=== PATIENT | female | born 1935 | race Caucasian/White ===

== ENCOUNTER 2019-11-04 09:42 | Outpatient (CLI) | payer MEDICARE, SELFPAY ==
--- NOTE | 2019-11-10 01:38 | WPDPFTINT ---
PFT Interpretation PFT Interpretation: DOS: 11/04/2019 REQUESTING: Dr. Jose Vásquez REASON FOR TESTING: Dyspnea on exertion PULMONARY FUNCTION TESTS Results are reproducible. Spirometry: Normal FEV1, FVC and FEV1%. Decreased XXP76-68% at 56% predicted. The small airways increased by 30% with bronchodilator. Lung volumes: Total lung capacity normal 98%. Increased RV/TLC consistent with air trapping. Increased airway resistance. Diffusion: DLCO mildly decreased, 64%. Flow volume loop: Normal. IMPRESSION: Small airways pattern with good response to bronchodilator, air trapping, mild diffusion impairment. Miriam Sims MD
== END 2019-11-04 09:43 | disposition home or self-care (01) ==
PROVIDERS: PCP Family Medicine Adolescent Medicine; Visit Provider Family Medicine Adolescent Medicine
DX: R06.09 Other forms of dyspnea (principal)
CPT/HCPCS: 94060; 94726; 94729

== ENCOUNTER 2020-05-22 11:04 | Emergency (ER) | payer MEDICARE, SELFPAY ==
--- NOTE | ~2020-05-22 | XR_ITS ---
EXAMINATION: XR wrist RT min 3V DATE: 05/22/2020 12:02 INDICATION: Right wrist pain post fall TECHNIQUE: Posteroanterior, ulnar deviation, oblique, and lateral views of the right wrist were obtai shelly. COMPARISON: none FINDINGS: No fracture or traumatic malalignment. Chondrocalcinosis on the right wrist joint line. Polyarticular osteoarthritis, advanced at the first carpometacarpal joint, severe at the triscaphe and first inter phalangeal joints, moderate severity at the second and fifth metacarpophalangeal joints and mild at t he remaining metacarpophalangeal joints. Diffuse osteopenia. Soft tissue swelling about the radial as pect of the distal forearm. IMPRESSION: 1. No acute osseous abnormality. 2. Severe polyarticular osteoarthritis with chondrocalcinosis. Reviewed, dictated and finalized at location A.
--- NOTE | ~2020-05-22 | CT_ITS ---
EXAMINATION: CT cervical spine wo con DATE: 05/22/2020 12:21 INDICATION: Neck pain post fall TECHNIQUE: Computed tomography (CT) of the cervical spine was performed without intravenous contrast. Automated exposure control and iterative reconstruction technique were employed. The dose-length pro duct was 186.53 mGy-cm. COMPARISON: 04/24/2016 FINDINGS: Mild dextro scoliosis centered at the cervicothoracic junction. Unchanged 3 mm anterolisthesis C3 on C4 and C4 on C5. Vertebral body heights are normal. No acute fracture. Severe osteoarthritis at the a tlantoaxial articulation with calcified. Dense inflammatory pseudopannus. There are also erosions at the base of the dens. Severe disc height loss at C5-C6, C6-C7 and C7-T1. Moderate disc height loss at C2-C3 through C4-C5. Multilevel bilateral severe facet and uncovertebral osteoarthritis which result s in mild central canal and bilateral mild to moderate neural foraminal stenosis at multiple levels w hich is not significantly changed since the prior study. See prior report for level by level analysis . There is opacification of the bilateral sphenoid sinuses with increasing sclerosis of the manzano and increased density centrally consistent with chronic sinusitis. Mild atherosclerotic calcific a cyst at the bilateral carotid bulbs. Decrease in size of a now 10 mm left thyroid nodule. Cervical soft ti ssues are otherwise unremarkable. Visualized airway and apices of the lungs are clear. IMPRESSION: 1. Severe cervical spondylosis. No acute osseous abnormality. Reviewed, dictated and finalized at location A.
--- NOTE | ~2020-05-22 | XR_ITS ---
EXAMINATION: XR knee LT min 4V DATE: 05/22/2020 12:02 INDICATION: Left knee pain post fall TECHNIQUE: Anteroposterior, 2 oblique and crosstable lateral views of the left knee were obtained COMPARISON: 04/24/2016 FINDINGS: Left total knee arthroplasty with patellar resurfacing which remains well seated in near-anatomic ali gnment. No fracture or periprosthetic lucency to suggest loosening. Unchanged pattern of diffuse body osteopenia. No evident left knee joint effusion or layering lipohemarthrosis. Small amount of hetero topic ossification along the medial metaphyseal region of the proximal tibia. IMPRESSION: 1. Left total knee arthroplasty in near-anatomic alignment. No joint effusion or acute osseous abnorm ality Reviewed, dictated and finalized at location A. IMPRESSION: 1. Left total knee arthroplasty in near-anatomic alignment. No joint effusion o r acute osseous abnormality
[2020-05-22 11:15] VITALS: BP 128/66; PULSE 65; RESP 20; TEMP 36.4; O2SAT 98
--- NOTE | 2020-05-22 11:45 | ED.UPPEXIN ---
HPI - Extremity Injury (Upper) General Chief Complaint: Extremity Injury, Upper <Barbra Fuller PA-C - Last Filed: 05/22/20 13:48> Stated Complaint: Right hand injury - fall <ALCON Esteban Last Filed: 05/22/20 13:48> Time Seen by Provider: 05/22/20 11:18 <Barbra Fuller PA-C - Last Filed: 05/22/20 13:48> Source: patient <ALCON Esteban Last Filed: 05/22/20 13:48> Mode of arrival: ambulatory <ALCON Esteban Last Filed: 05/22/20 13:48> Limitations: no limitations <ALCON Esteban Last Filed: 05/22/20 13:48> History of Present Illness HPI narrative: This is an 85-year-old female that presents the emergency department for a fall today with right wrist pain. Reports she tripped and fell forward. Reports landing on her left knee and catching herself with her right wrist. Reports since she has had pain in the right wrist and left knee. Worse with movement and relieved with rest. She has not taken anything for pain. Denies hitting her head, loss of consciousness, decreased range of motion, or numbness. <Barbra Fuller PA-C - Last Filed: 05/22/20 13:48> Related Data Allergies/Adverse Reactions: Allergies Allergy/AdvReac Type Severity Reaction Status Date / Time etodolac Allergy Unknown RASH Verified 05/22/20 11:18 <Barbra Fuller PA-C - Last Filed: 05/22/20 13:48> Review of Systems Review of Systems: Narrative: CONSTITUTIONAL: Denies fever EYES: Denies visual changes GASTROINTESTINAL: Denies vomiting MUSCULOSKELETAL: Reports joint pain and myalgia. Denies back pain NEUROLOGIC: Denies numbness, or weakness. <ALCON Esteban Last Filed: 05/22/20 13:48> All systems reviewed & are unremarkable except as noted in HPI and below <ALCON Esteban Last Filed: 05/22/20 13:48> PMFSH Past Medical History Medical History: Medical History (Updated 05/22/20 @ 13:48 by Barbra Fuller PA-C) History of coronary artery disease History of gastroesophageal reflux (GERD) History of hyperlipidemia <Barbra Fuller PA-C - Last Filed: 05/22/20 13:48> Exam Narrative: Exam Narrative: GENERAL: Well-appearing, well-nourished, and in no acute distress. HEAD: Normocephalic, atraumatic. EYES: EOMI. NECK: Midline cervical spine tenderness CHEST: Clear to auscultation. No respiratory distress. No wheezes rales or rhonchi HEART: Regular rate and rhythm. No murmur heard. Normal peripheral pulses. EXTREMITIES: Normal range of motion. No edema or obvious deformity. Normal peripheral pulses. Normal sensation SKIN: Warm, dry, no rash. NEURO: No focal deficits. Alert and oriented x3. PSYCH: Normal mood and affect <Barbra Fuller PA-C - Last Filed: 05/22/20 13:48> Course Vital Signs Vital signs: Vital Signs Temperature 36.4 C L 05/22/20 11:15 Pulse Rate 65 05/22/20 11:15 Respiratory Rate 05/22/20 11:15 Blood Pressure 128/66 05/22/20 11:15 Pulse Oximetry 98 05/22/20 11:15 Temperature 36.4 C L 05/22/20 11:15 Pulse Rate 65 05/22/20 11:15 Respiratory Rate 05/22/20 11:15 Blood Pressure 128/66 05/22/20 11:15 Pulse Oximetry 98 05/22/20 11:15 <Barbra Fuller PA-C - Last Filed: 05/22/20 13:48> Vital Signs Temperature 36.4 C L 05/22/20 11:15 Pulse Rate 65 05/22/20 11:15 Respiratory Rate 20 05/22/20 11:15 Blood Pressure 128/66 05/22/20 11:15 Pulse Oximetry 98 05/22/20 11:15 Temperature 36.4 C L 05/22/20 11:15 Pulse Rate 65 05/22/20 11:15 Respiratory Rate 20 05/22/20 11:15 Blood Pressure 128/66 05/22/20 11:15 Pulse Oximetry 98 05/22/20 11:15 <Brigitte hCun MD - Last Filed: 05/22/20 13:58> MDM - Extremity Injury (Upper) MDM Narrative Medical decision making narrative: Patient presents to the emergency department after a fall today with left knee, right wrist, and neck pain. Patient denies hitting her head or loss of consciousne
[2020-05-22] MEDS: ACETAMINOPHEN 500 MG TABLET 1000 MG PO (12:18)
[2020-05-22 13:57] VITALS: BP 132/70; PULSE 70; RESP 20; O2SAT 99
== END 2020-05-22 14:06 | disposition home or self-care (01) ==
PROVIDERS: Emergency Provider Emergency Medicine; PCP Family Medicine Adolescent Medicine
DX: S63.501A Unspecified sprain of right wrist, initial encounter (principal); M54.2 Cervicalgia; M25.562 Pain in left knee; I25.10 Atherosclerotic heart disease of native coronary artery without angina pectoris; K21.9 Gastro-esophageal reflux disease without esophagitis; E78.5 Hyperlipidemia, unspecified; M47.812 Spondylosis without myelopathy or radiculopathy, cervical region; M19.031 Primary osteoarthritis, right wrist; W01.0XXA Fall on same level from slipping, tripping and stumbling without subsequent striking against object, initial encounter
CPT/HCPCS: 72125; 73110; 73564; 99284; A4565; A9270

== ENCOUNTER 2021-06-08 10:14 | Emergency (ER) | payer MEDICARE, SELFPAY ==
--- NOTE | ~2021-06-08 | XR_ITS ---
EXAMINATION: XR hip RT 2V w AP pelvis DATE: 06/08/2021 11:31 INDICATION: Right hip pain post fall TECHNIQUE: Anteroposterior view of the pelvis and anteroposterior and frog-leg lateral views of the r ight hip were obtained. COMPARISON: None. FINDINGS: Alignment is normal. No fracture. Mild right and moderate left hip osteoarthritis with chondrocalcino sis at both hips. Severe lower lumbar spondylosis. IMPRESSION: 1. Chondrocalcinosis and osteoarthritis of both hips. No acute osseous abnormality. 2. Severe lower lumbar spondylosis. Reviewed, dictated and finalized at location A. IMPRESSION: 1. Chondrocalcinosis and osteoarthritis of both hips. No acute osseous abnormal ity. 2. Severe lower lumbar spondylosis.
--- NOTE | ~2021-06-08 | XR_ITS ---
XR chest 1V portable 06/08/2021 11:36 Indication: Status post fall. Chest pain. Procedure: AP view of the chest Comparison: 09/23/2007 Findings: Left basilar atelectasis. Heart size normal. No focal pneumonia, edema, pleural effusion or pneumothorax. No acute osseous abnormality. Impression: 1: Left basilar atelectasis. Reviewed, dictated and finalized at location A. Impression: 1: Left basilar atelectasis.
--- NOTE | ~2021-06-08 | XR_ITS ---
EXAMINATION: XR knee RT 3V EXAM DATE: 06/08/2021 11:30 INDICATION: Fall, right knee pain. TECHNIQUE: Three projections of the right knee. There is no prior study for comparison. FINDINGS: Total right knee arthroplasty hardware. There is acute closed posttraumatic transverse frac ture with some comminution above the femoral component, the right radial distal metaphysis. There is posterior angulation and displacement. Soft tissue swelling. Tibia and fibula are unremarkable. IMPRESSION: Acute right distal femoral metaphyseal fracture above femoral component. Posterior angula tion, displacement. Reviewed, dictated and finalized at location B. IMPRESSION: Acute right distal femoral metaphyseal fracture above femoral compo nent. Posterior angulation, displacement.
[2021-06-08 10:20] VITALS: BP 143/82; PULSE 69; RESP 16; TEMP 36.2; O2SAT 96
--- NOTE | 2021-06-08 11:19 | ECG_ITS ---
Measurements Intervals [place] Rate: 64 P: 75 NH: 127 QRS: 32 QRSD: 85 T: 46 QT: 375 QTc: 388 Interpretive Statements SINUS RHYTHM BASELINE ARTIFACT- I, II, AVR, AVL, AVF, V4-V5 NORMAL ECG Electronically Signed On 06-08-2021 13:02:44 CDT by Rashard Cason D.O.
[2021-06-08] MEDS: MORPHINE SULFATE (*CRX) 4 MG/ML INJ IV PUSH (11:51)
[2021-06-08] MEDS: ONDANSETRON INJ 4 MG/2 ML VIAL IV PUSH (11:51)
--- NOTE | 2021-06-08 12:26 | ED.LOWEXIN ---
HPI - Extremity Injury (Lower) General Chief Complaint: Extremity Injury, Lower Stated Complaint: FALL R HIP AND LEG PAIN Time Seen by Provider: 06/08/21 10:15 Source: patient, EMS and RN notes reviewed Mode of arrival: EMS Limitations: no limitations History of Present Illness HPI Narrative: Patient is 86 years old white female came from home after a fall. Patient lives alone, uses a cane to assist walking, right knee gave out and fell to the floor, denies head injury, or loss of consciousness complaining of right knee pain. Patient had the first dose of Covid vaccination weeks ago. Patient denies taking any blood thinner, does not smoke or drink. Related Data Home Medications Medication Instructions Recorded Confirmed Unable to Obtain Home Medications 06/08/21 06/08/21 Allergies Allergy/AdvReac Type Severity Reaction Status Date / Time etodolac Allergy Unknown RASH Verified 06/08/21 12:43 Review of Systems Review of Systems: CONSTITUTIONAL: Denies fever, chills, or sweats. EYES: Denies visual changes, redness, or discharge. ENT: Denies rhinorrhea, congestion, sore throat, or otalgia. CARDIOVASCULAR: Denies chest pain, palpitations, or edema. RESPIRATORY: Denies cough or dyspnea. GASTROINTESTINAL: Denies abdominal pain, nausea, vomiting, or diarrhea. GENITOURINARY: Denies dysuria or hematuria. SKIN: Denies rash or itching. MUSCULOSKELETAL: Denies back pain, joint pain, or myalgia. NEUROLOGIC: Denies headache, numbness, or weakness. PSYCHIATRIC: Denies anxiety or depression. PMFSH Past Medical History Medical History Arthritis of wrist, right, degenerative Constipation Fracture of radius, distal, right, closed History of coronary artery disease History of gastroesophageal reflux (GERD) History of hyperlipidemia Shortness of breath Urinary frequency Vision changes Wears glasses Social History Social History Smoking status: Never smoker Alcohol intake: never Exam Narrative: General appearance: Well-developed, well-nourished, looks in pain Skin: Normal color Head: Normocephalic, nontraumatic Eyes: Clear conjunctiva ENT: Oropharynx normal, ears normal, nose normal Neck: Supple, nontender Chest and respiratory: Airway patent, no respiratory distress, no accessory muscle use Heart: Regular rate/rhythm Abdomen: Soft, nontender, no organomegaly, quiet bowel sounds Vascular: Normal peripheral pulses, normal capillary refill. Musculoskeletal: Deformity and diffuse excruciating tenderness right knee. Neurologic: Alert and oriented ?3, CAS[place] CREW is normal as tested, no gross motor deficit Course Course Emergency Course: Stable Consultations Consultation #1: Dr. Meyer patient to [facility] Date: 06/08/21 Time: 12:36 Consultation #2: Dr. Gomez, [facility], orthopedic. Date: 06/08/21 Time: 15:15 Consultation #3: Dr. Munoz, ED at [facility] who accepted patient transfer Date: 06/08/21 Time: 15:15 Vital Signs Vital signs: Vital Signs Temperature 36.2 C L 06/08/21 10:20 Pulse Rate 69 06/08/21 10:20 Respiratory Rate 16 06/08/21 10:20 Blood Pressure 143/82 H 06/08/21 10:20 Pulse Oximetry 96 06/08/21 10:20 Temperature 36.2 C L 06/08/21 10:20 Pulse Rate 96 06/08/21 14:45 Respiratory Rate 16 06/08/21 14:45 Blood Pressure 137/78 06/08/21 14:45 Pulse Oximetry 98 06/08/21 14:45 MDM - Extremity Injury (Lower) MDM Narrative Medical decision making narrative: Distal femoral fracture is my concern. X-ray, IV access, IV morphine, IV Zofran, labs ordered. Further plan to
[2021-06-08 12:32] LABS: Alanine Aminotransferase 19 U/L (4-35); Albumin Level 4.1 g/dL (3.5-5.1); Alkaline Phosphatase 62 U/L (38-126); Anion Gap 11 mmol/L (8-16); Aspartate Amino Transferase 28 U/L (14-36); Bilirubin,Total 0.5 mg/dL (0.2-1.3); Blood Urea Nitrogen 8 mg/dL (7-17); Calcium 9.7 mg/dL (8.4-10.2); Carbon Dioxide 22 mmol/L (22-30); Chloride 105 mmol/L (98-107); Estimated CRCL calculation 54 ml/min; Estimated Glomerular Filt Rate > 60; Glucose 145 mg/dL (65-110); Potassium 3.9 mmol/L (3.4-5.0); Sodium 138 mmol/L (137-145)
[2021-06-08 12:42] VITALS: BP 115/77; PULSE 88; RESP 16; O2SAT 100
[2021-06-08 14:45] VITALS: BP 137/78; PULSE 96; RESP 16; O2SAT 98
--- NOTE | 2021-06-08 14:48 | PC.NURSE ---
Hi, Dalton, updated.
[2021-06-08 15:02] LABS: Basophils Absolute Auto 0.1 K/mm3 (0.0-0.1); Basophils Percent Auto 0.5 % (0.2-1.2); Eosinophils Percent Auto 0.1 % (0-4.4); Hematocrit 42.4 % (37.0-47.0); Hemoglobin 13.5 g/dL (12.0-15.0); Immature Granulocyte Absolute 0.04 K/mm3 (0.00-0.031); Immature Granulocyte Percent A 0.4 % (0-0.5); Lymphocytes Absolute Auto 0.56 K/mm3 (0.9-3.2); Lymphocytes Percent Auto 5.8 % (18.3-44.2); Mean Corpuscular HGB Conc 31.8 g/dl (32-36); Mean Corpuscular Hemoglobin 28.6 pg (26-34); Mean Corpuscular Volume 89.8 fl (80-100); Mean Platelet Volume 10.1 fl (7.4-10.4); Monocytes Absolute Auto 0.5 K/mm3 (0.1-0.6); Monocytes Percent Auto 5.6 % (2.6-8.5); Neutrophils Absolute Auto 8.4 K/mm3 (1.3-6.7); Neutrophils Percent Auto 87.6 % (45.5-73.1); Platelet Count Result 265 k/mm3 (150-375); Red Blood Count 4.72 M/mm3 (4.2-5.4); Red Cell Distribution Width 15.1 % (11.5-14.5); White Blood Count 9.6 K/mm3 (4.5-10.0)
[2021-06-08 16:18] LABS: INR 0.9; Prothrombin Time 12.4 Seconds (11.1-14.7)
[2021-06-08 16:27] LABS: Partial Thromboplastin Time 25.6 SECONDS (22.3-36.8)
[2021-06-08 17:33] LABS: Add Urine Microscopic? YES; Appearance Urine Clear (Clear); Bilirubin Urine Negative (Negative); Blood Urine Negative (Negative); Color Urine Yellow (Yellow); Glucose Urine UA Negative (Negative); Ketones Urine Negative (Negative); Leukocyte Esterase Ur Negative LEU/UL (Negative); Nitrate Urine Negative (Negative); Protein Urine 1+ mg/dL (Negative); Specific Grav Ur 1.012 (1.001-1.035); Urobilinogen Urine Negative mg/dL (<2.0)
== END 2021-06-08 15:55 | disposition short-term general hospital (02) ==
PROVIDERS: Emergency Provider Emergency Medicine; PCP Family Medicine Adolescent Medicine
DX: S79.191A Other physeal fracture of lower end of right femur, initial encounter for closed fracture (principal); M19.031 Primary osteoarthritis, right wrist; I25.10 Atherosclerotic heart disease of native coronary artery without angina pectoris; K21.9 Gastro-esophageal reflux disease without esophagitis; E78.5 Hyperlipidemia, unspecified; M11.252 Other chondrocalcinosis, left hip; M11.251 Other chondrocalcinosis, right hip; M16.0 Bilateral primary osteoarthritis of hip; M47.816 Spondylosis without myelopathy or radiculopathy, lumbar region; W18.39XA Other fall on same level, initial encounter
CPT/HCPCS: 36415; 51701; 71045; 73502; 73562; 80053; 81001; 85025; 85610; 85730; 93005; 96374; 96375; 99285; J2270; J2405

== ENCOUNTER 2021-07-23 07:07 | Emergency (ER) | payer MEDICARE, SELFPAY ==
--- NOTE | ~2021-07-23 | XR_ITS ---
EXAMINATION: XR chest 2V EXAM DATE: 07/23/2021 07:44 INDICATION: Ground level fall hx of dementia. TECHNIQUE: Frontal and lateral projections of the chest obtained and reviewed. There is no prior belkis dy for comparison. FINDINGS: The lungs are clear. There are no pleural effusions. The cardiomediastinal silhouette is within normal limits. There is no pneumothorax suspected. There is aortic arteriosclerosis. There a re mild bony degenerative changes. IMPRESSION: No acute cardiopulmonary findings. Reviewed, dictated and finalized at location A.
--- NOTE | ~2021-07-23 | XR_ITS ---
EXAMINATION: XR lumbar spine 2-3V EXAM DATE: 07/23/2021 07:44 INDICATION: ground level fall, right side low back pain. h/o dementia . TECHNIQUE: Lumber spine frontal, lateral projections for interpretation. Comparison is made to prior examination from 04/24/2016. FINDINGS: The distal half of the sacrum is obscured on the lateral from overlying artifacts. There is severe disc disease L3-S1. There is moderate lower lumbar facet arthropathy. There is 4 mm anterolis thesis L3 on L4, 6 mm anterolisthesis L4 on L5 without definite spondylolysis. Evaluation of the sacr um and transverse processes is somewhat limited due to overlying bowel gas. There are no acute fractu res identified. Moderate abdominal aortic arteriosclerosis. IMPRESSION: 1. Limited exam, no acute fracture identified. Reviewed, dictated and finalized at location A.
--- NOTE | ~2021-07-23 | CT_ITS ---
EXAMINATION: CT brain wo con, CT cervical spine wo con EXAM DATE: 07/23/2021 07:57 (accession [id number]), 07/23/2021 07:58 (accession [id number]) INDICATION: Occipital head injury. Ground level fall. TECHNIQUE: Spiral CT of the head was performed without contrast. Axial, coronal and sagittal images were reviewed. Spiral CT of the cervical spine was performed without contrast. Axial images were rev iewed. Coronal and sagittal reformatted images were also reviewed. The dose-length product (DLP) fo r this examination was 605.33 (accession [id number]), 127.85 (accession [id number]) mGy-cm. The exposure was tailored according to patient size, and iterative reconstruction (ASIR) was used as additional dose reduction technique. Comparison is made to prior examination from 04/17/2005. FINDINGS: HEAD CT: There is right vertex scalp contusion, hematoma. No underlying calvarial fracture. There is no acute intraparenchymal hemorrhage. No evidence of intraparenchymal brain mass lesion. No evidenc e of acute infarction. There is mild to moderate periventricular and subcortical hypodensity, nonspec ific but probably related to small vessel ischemic disease. There is moderate prominence of the sul ci and ventricles related to cerebral atrophy. There is no mass effect or midline shift. There is no obstructive hydrocephalus suspected. There are no extra-axial collections. Patient has had bilat eral ocular lens surgery. Soft tissue is unremarkable. The visualized sinuses and mastoid air cells are well aerated. CERVICAL CT: Large amount of pannus formation surrounding the odontoid process. There is no evidence of acute cervical fracture. The odontoid process is intact. Pre-dens space is normal. Prevertebral soft tissue is normal. There are no soft tissue abnormalities identified. There is no disc space w idening or traumatic vertebral body subluxation suspected. There are multiple degenerative subluxati ons. There is severe cervical disc disease and arthropathy. A detailed level by level evaluation of spondylosis can be added as addendum if requested. IMPRESSION: 1. No acute intracranial findings or cervical fracture. 2. Right posterior scalp contusion, hematoma. 3. Age-related intracranial findings. 4. Advanced cervical spondylosis. Reviewed, dictated and finalized at location A. IMPRESSION: 1. No acute intracranial findings or cervical fracture. 2. Right posterior scalp contusion, hematoma. 3. Age-related intracranial findings. 4. Advanced cervical spondylosis.
--- NOTE | 2021-07-23 07:24 | ECG_ITS ---
Measurements Intervals [place] Rate: 64 P: 72 TN: 138 QRS: 40 QRSD: 88 T: 35 QT: 418 QTc: 434 Interpretive Statements SINUS RHYTHM BASELINE ARTIFACT- I, III, AVR, AVL, AVF, V4-V6 NORMAL ECG Electronically Signed On 07-23-2021 15:48:19 CDT by Rashard Cason D.O.
[2021-07-23 07:27] VITALS: BP 112/57; PULSE 61; RESP 18; TEMP 36.4; O2SAT 97
--- NOTE | 2021-07-23 07:56 | ED.FALL ---
HPI - Fall General Chief Complaint: Fall Stated Complaint: FALL Time Seen by Provider: 07/23/21 07:19 Source: patient, EMS, RN notes reviewed and old records reviewed History of Present Illness HPI Narrative: Patient presents after an unwitnessed fall. Patient is bedbound due to prior lower extremity fractures. This morning she was found on the ground with bleeding from a head injury she was referred to the ER for evaluation. Patient's baseline mental status alert and oriented x2. snf reports they have had issues with patient attempting to get out of bed her self. Have not noted any recent fevers changes in appetite cough or congestion. Nursing facility did not appreciate any change in her baseline mental status. Patient is reporting low back pain Related Data Home Medications Medication Instructions Recorded Confirmed Unable to Obtain Home Medications 06/08/21 06/08/21 Allergies Allergy/AdvReac Type Severity Reaction Status Date / Time etodolac Allergy Unknown RASH Verified 07/23/21 07:38 Review of Systems Review of Systems: CONSTITUTIONAL: Denies fever, chills, or sweats. EYES: Denies visual changes, redness, or discharge. ENT: Denies rhinorrhea, congestion, sore throat, or otalgia. CARDIOVASCULAR: Denies chest pain, palpitations, or edema. RESPIRATORY: Denies cough or dyspnea. GASTROINTESTINAL: Denies abdominal pain, nausea, vomiting, or diarrhea. GENITOURINARY: Denies dysuria or hematuria. SKIN: Denies rash or itching. MUSCULOSKELETAL: Patient ports low back pain NEUROLOGIC: Patient reports headache PSYCHIATRIC: Denies anxiety or depression. All systems reviewed & are unremarkable except as noted in HPI and below PMFSH Past Medical History Medical History Arthritis of wrist, right, degenerative Constipation Fracture of radius, distal, right, closed History of coronary artery disease History of gastroesophageal reflux (GERD) History of hyperlipidemia Shortness of breath Urinary frequency Vision changes Wears glasses Social History Social History Smoking status: Never smoker Alcohol intake: never Exam Narrative: GENERAL: Well-appearing, well-nourished, and in no acute distress. HEAD: Normocephalic, superficial abrasion on the right occiput without active bleeding there is an underlying hematoma. EYES: PERRLA and EOMI. ENT: Nares clear, no rhinorrhea or epistaxis. Mucous membranes moist. NECK: Supple. No masses. No JVD CHEST: Clear to auscultation. No respiratory distress. No wheezes rales or rhonchi HEART: Regular rate and rhythm. No murmur heard. Normal peripheral pulses. ABDOMEN: Soft, nontender, nondistended, normal active bowel sounds. EXTREMITIES: Normal range of motion. No edema. BaCK: No focal areas of midline pain no step-offs no deformities no ecchymoses SKIN: Warm, dry, no rash. NEURO: No focal deficits. Alert and oriented x2. PSYCH: Normal mood and affect. Course Reevaluation(s) Reevaluation #1: Patient is resting comfortably wound has been irrigated imaging reviewed with patient. Patient is appropriate to return to her nursing facility. Patient is comfortable returning to her nursing facility Date: 07/23/21 Time: 09:06 Vital Signs Vital signs: Vital Signs Temperature 36.4 C L 07/23/21 07:27 Pulse Rate 61 07/23/21 07:27 Respiratory Rate 18 07/23/21 07:27 Blood Pressure 112/57 L 07/23/21 07:27 Pulse Oximetry 97 07/23/21 07:27 Temperature 36.4 C L 07/23/21 07:27 Pulse Rate 60 07/23/21 09:21 Respiratory Rate 16 07/23/21 09:21 Blood Pressure 113/51 L 07/23/21 09:21 Pulse Oximetry 99 07/23/21 09:21 MDM - Fall MDM Narrative Medical decision making narrative: H&P as above, vss, pt looks clinically well, exam superficial abrasion to the right occiput no lacerations or injuries amenable to suturing, labs similar to prior, img wi
[2021-07-23] MEDS: SODIUM CHLORIDE 0.9% IV 500 ML 999 ML IV CONT (07:59)
[2021-07-23 08:16] LABS: Basophils Absolute Auto 0.1 K/mm3 (0.0-0.1); Eosinophils Absolute Auto 0.1 K/mm3 (0-0.3); Eosinophils Percent Auto 2.1 % (0-4.4); Hematocrit 38.1 % (37.0-47.0); Hemoglobin 12.6 g/dL (12.0-15.0); Immature Granulocyte Absolute 0.03 K/mm3 (0.00-0.031); Immature Granulocyte Percent A 0.6 % (0-0.5); Lymphocytes Absolute Auto 0.51 K/mm3 (0.9-3.2); Lymphocytes Percent Auto 9.8 % (18.3-44.2); Mean Corpuscular HGB Conc 33.1 g/dl (32-36); Mean Corpuscular Hemoglobin 31.2 pg (26-34); Mean Corpuscular Volume 94.3 fl (80-100); Mean Platelet Volume 9.6 fl (7.4-10.4); Monocytes Absolute Auto 0.6 K/mm3 (0.1-0.6); Monocytes Percent Auto 10.7 % (2.6-8.5); Neutrophils Percent Auto 75.8 % (45.5-73.1); Platelet Count Result 302 k/mm3 (150-375); Red Blood Count 4.04 M/mm3 (4.2-5.4); Red Cell Distribution Width 14.9 % (11.5-14.5); White Blood Count 5.2 K/mm3 (4.5-10.0)
[2021-07-23 08:27] LABS: Prothrombin Time 13.5 Seconds (11.1-14.7)
[2021-07-23 08:28] LABS: Partial Thromboplastin Time 27.1 SECONDS (22.3-36.8)
[2021-07-23 08:35] LABS: Alanine Aminotransferase 19 U/L (4-35); Albumin Level 3.1 g/dL (3.5-5.1); Alkaline Phosphatase 75 U/L (38-126); Anion Gap 6 mmol/L (8-16); Aspartate Amino Transferase 28 U/L (14-36); Bilirubin,Total 0.6 mg/dL (0.2-1.3); Blood Urea Nitrogen 5 mg/dL (7-17); Calcium 9.2 mg/dL (8.4-10.2); Carbon Dioxide 26 mmol/L (22-30); Chloride 102 mmol/L (98-107); Estimated CRCL calculation 80 ml/min; Estimated Glomerular Filt Rate > 60; Glucose 120 mg/dL (65-110); Potassium 3.8 mmol/L (3.4-5.0); Sodium 134 mmol/L (137-145)
[2021-07-23 08:38] LABS: Add Urine Microscopic? NO; Appearance Urine Clear (Clear); Bilirubin Urine Negative (Negative); Blood Urine Negative (Negative); Color Urine Yellow (Yellow); Glucose Urine UA Negative (Negative); Ketones Urine Negative (Negative); Leukocyte Esterase Ur Negative LEU/UL (Negative); Nitrate Urine Negative (Negative); Protein Urine Negative (Negative); Specific Grav Ur 1.006 (1.001-1.035); Urobilinogen Urine Negative mg/dL (<2.0)
[2021-07-23 09:21] VITALS: BP 113/51; PULSE 60; RESP 16; O2SAT 99
== END 2021-07-23 10:51 ==
PROVIDERS: Emergency Provider Emergency Medicine; PCP Family Medicine Adolescent Medicine
DX: S00.01XA Abrasion of scalp, initial encounter (principal); S00.03XA Contusion of scalp, initial encounter; I25.10 Atherosclerotic heart disease of native coronary artery without angina pectoris; E78.5 Hyperlipidemia, unspecified; K21.9 Gastro-esophageal reflux disease without esophagitis; M47.812 Spondylosis without myelopathy or radiculopathy, cervical region; W19.XXXA Unspecified fall, initial encounter
CPT/HCPCS: 36415; 51701; 70450; 71046; 72100; 72125; 80053; 81003; 85025; 85610; 85730; 93005; 96361; 96365; 99284; J0131; J7040

== ENCOUNTER 2023-01-20 02:41 | Emergency (ER) | payer MEDICARE, MEDICAID, SELFPAY ==
--- NOTE | ~2023-01-20 | CT_ITS ---
EXAMINATION: CT cervical spine wo con DATE: 01/20/2023 04:35 INDICATION: Neck injury. Fall. TECHNIQUE: Computed tomography (CT) of the cervical spine was performed without intravenous contrast. Automated exposure control and iterative reconstruction technique were employed. The dose-length pro duct was 399.29 mGy-cm. COMPARISON: Cervical spine CT 07/23/2021 FINDINGS: There is 2 mm anterolisthesis of C3 on C4 and C4 on C5 and C7 on T1. Vertebral body heights are normal. There is severe osteoarthritis of anterior atlantoaxial joint with peridens inflammatory pseudopannus with mild central canal stenosis. There is moderately decreased disc height at C2-C3, C 3-C4, and C4-C5 and severely decreased disc height from C5-C6 through C7-T1 with endplate remodeling. The following disc levels are specifically discussed: C2-C3: There is mild bilateral uncovertebral joint osteoarthritis. There is severe bilateral facet lazarus int osteoarthritis. There is mild bilateral neural foraminal stenosis. There is mild central canal st enosis. C3-C4: There is severe bilateral uncovertebral joint osteoarthritis. There is severe bilateral facet joint osteoarthritis. There is moderate bilateral neural foraminal stenosis. There is mild central ca nal stenosis. C4-C5: There is severe bilateral uncovertebral joint osteoarthritis. There is severe bilateral facet joint osteoarthritis. There is moderate right and mild left neural foraminal stenosis. There is mild central canal stenosis. C5-C6: There is severe bilateral uncovertebral joint osteoarthritis. There is severe bilateral facet joint osteoarthritis. There is mild right and moderate left neural foraminal stenosis. There is mild central canal stenosis. C6-C7: There is severe bilateral uncovertebral joint osteoarthritis. There is severe bilateral facet joint osteoarthritis. There is mild bilateral neural foraminal stenosis. There is mild central canal stenosis. C7-T1: There is severe bilateral uncovertebral joint osteoarthritis. There is severe bilateral facet joint osteoarthritis. There is moderate bilateral neural foraminal stenosis. There is mild central ca nal stenosis. IMPRESSION: 1. No fracture. 2. Severe cervical spondylosis. Reviewed, dictated and finalized at location E.
--- NOTE | ~2023-01-20 | CT_ITS ---
EXAMINATION: CT brain wo con DATE: 01/20/2023 04:34 INDICATION: Head injury. Dementia. TECHNIQUE: Computed tomography (CT) of the head was performed without intravenous contrast. The mA wa s adjusted according to patient size. Iterative reconstruction technique was employed. The dose-lengt h product was 681.00 mGy-cm. COMPARISON: Head CT 07/23/2021 FINDINGS: There is diffuse brain volume loss. There are scattered areas of low attenuation in the cer ebral white matter and samantha. There is no intracranial hemorrhage, acute infarction, or abnormal intra cranial mass lesion. The ventricles are normal in size. There are likely changes of ocular lens repla cement surgeries. The mastoid air cells are normal. There is near complete opacification of sphenoid sinus with thickening and sclerosis of the sinus manzano, consistent with chronic sinusitis. There is m ild mucosal thickening in the other paranasal sinuses. There is left posterior superior scalp soft ti ssue swelling. IMPRESSION: 1. Moderate nonspecific cerebral white matter disease and pontine disease with interval worsening in the samantha, which likely represents chronic small vessel ischemic disease. 2. Chronic sinusitis. Reviewed, dictated and finalized at location E. IMPRESSION: 1. Moderate nonspecific cerebral white matter disease and pontine disease with interval worsening in the samantha, which likely represents chronic small vessel is chemic disease. 2. Chronic sinusitis.
--- NOTE | ~2023-01-20 | XR_ITS ---
EXAMINATION: XR foot RT min 3V DATE: 01/20/2023 04:39 INDICATION: Bruising and pain of the first toe TECHNIQUE: Dorsoplantar, lateral, and 2 oblique views of the left foot were obtained. COMPARISON: 02/15/2016 FINDINGS: The bones are osteopenic which limits the sensitivity for fracture. There is a questionable oblique intra-articular fracture at the medial base of the first proximal phalanx. There is moderate osteoarthritis of multiple interphalangeal joints as well as in the midfoot. Calcified atheroscleros is is noted. IMPRESSION: 1. Possible nondisplaced intra-articular fracture at the medial base of the first proximal phalanx. Reviewed, dictated and finalized at location A. IMPRESSION: 1. Possible nondisplaced intra-articular fracture at the medial base of the fir st proximal phalanx.
[2023-01-20 02:55] VITALS: BP 155/118; PULSE 77; RESP 15; O2SAT 97
[2023-01-20 02:56] VITALS: PULSE 73; RESP 16; O2SAT 97
[2023-01-20 03:00] VITALS: PULSE 69; RESP 13; O2SAT 92
[2023-01-20 03:31] VITALS: BP 129/50; PULSE 72; RESP 12; O2SAT 99
[2023-01-20 03:46] VITALS: BP 139/52; PULSE 68; RESP 13; O2SAT 96
[2023-01-20] MEDS: ACETAMINOPHEN 500 MG TABLET 1000 MG PO (04:43)
--- NOTE | 2023-01-20 06:22 | PC.NURSE ---
Isac rodriguez called for an update on Pt. Nurse updated on patient and pending results. Informed nurse that unless ED MD feels pt is in need of admission that pt will be discharged back to the facility.
--- NOTE | 2023-01-20 07:00 | ED.FALL ---
HPI - Fall General Chief Complaint: Fall Stated Complaint: glf Time Seen by Provider: 01/20/23 04:01 History of Present Illness HPI Narrative: This is an 87F with history of dementia brought in by EMS after an unwitnessed fall at her [facility]. The patient states she was attempting to walk to her bathroom when she tripped and fell. She complains of mild dull pain to the back of her head and mild to moderate pain at the medial aspect of the right foot. She denies chest pain, palpitations, lightheadness, focal weakness, difficulty breathing or loss of consciousness. Related Data Home Medications Medication Instructions Recorded Confirmed Unable to Obtain Home Medications 06/08/21 12/14/22 Allergies Allergy/AdvReac Type Severity Reaction Status Date / Time etodolac Allergy Unknown RASH Verified 07/23/21 07:38 Review of Systems Review of Systems: CONSTITUTIONAL: Denies fever, chills, or sweats. CARDIOVASCULAR: Denies chest pain, palpitations, or edema. RESPIRATORY: Denies cough or dyspnea. GASTROINTESTINAL: Denies abdominal pain, nausea vomiting or diarrhea. GENITOURINARY: Denies dysuria or hematuria. SKIN: Denies rash or itching. MUSCULOSKELETAL: Right foot pain Denies back pain, or myalgia. NEUROLOGIC: Mild headache Denies numbness, dizziness, or weakness. PSYCHIATRIC: Denies depression or anxiety PMFSH Past Medical History Medical History Arthritis of wrist, right, degenerative Constipation Fracture of radius, distal, right, closed History of coronary artery disease History of gastroesophageal reflux (GERD) History of hyperlipidemia Shortness of breath Urinary frequency Vision changes Wears glasses Social History Social History Smoking status: Never smoker Alcohol intake: never Exam Narrative: GENERAL: Well-developed, well-nourished, in no acute distress HEAD: Normocephalic, atraumatic. EYES: PERRLA and EOMI. ENT: Nares clear, no rhinorrhea or epistaxis. Mucous membranes moist. Oropharynx without tonsillar hypertrophy exudate or other lesions. Bilateral TMs appear normal NECK: Supple. No adenopathy or masses. No carotid bruits or JVD. No midline spine tenderness to palpation. No step-off or crepitus CHEST: Clear to auscultation. No respiratory distress. No wheezes rales or rhonchi HEART: Regular rate and rhythm. No murmur heard. Normal peripheral pulses. ABDOMEN: Soft, nontender, nondistended, normal active bowel sounds. No CVA tenderness BACK: No midline spine tenderness to palpation. No step-off or crepitus EXTREMITIES: Normal range of motion. Mild deformation of the bilateral distal fingers consistent with arthritis. Mild ecchymosis at the dorsal lateral aspect of the right great toe with mild tenderness to palpation. No edema. SKIN: Warm, dry, no rash. NEURO: No focal deficits. Alert and oriented x3. Strength 5/5 in all extremities, sensation intact bilaterally, no noted ataxia PSYCH: Normal mood and affect. Course Course Emergency Course: 06:30 - CT reads delayed for overnight stat rad interpretation. CT head negative for intracranial hemorrhage or fracture. CT cervical spine negative for fracture. On my review of the patient's foot x-ray is not concerning for fracture. Nursing staff contacted the patient's [facility]. She is wheelchair-bound aside from ambulating to the bathroom. Will discharge. Vital Signs Vital signs: Vital Signs Pulse Rate 77 01/20/23 02:55 Respiratory Rate 15 01/20/23 02:55 Blood Pressure 155/118 H 01/20/23 02:55 Pulse Oximetry 97 01/20/23 02:55 Pulse Rate 80 01/20/23 07:40 Respiratory Rate 18 01/20/23 07:40 Blood Pressure 125/60 01/20/23 07:40 Pulse Oximetry 98 01/20/23 07:40 MDM - Fall MDM Narrative Medical decision making narrative: Plan: Imaging, reassess Differential Diagnosis Differential michael
[2023-01-20 07:40] VITALS: BP 125/60; PULSE 80; RESP 18; O2SAT 98
== END 2023-01-20 08:00 ==
PROVIDERS: Emergency Provider Preventive Medicine Aerospace Medicine; PCP Family Medicine Adolescent Medicine
DX: S00.03XA Contusion of scalp, initial encounter (principal); S90.31XA Contusion of right foot, initial encounter; F03.90 Unspecified dementia, unspecified severity, without behavioral disturbance, psychotic disturbance, mood disturbance, and anxiety; I25.10 Atherosclerotic heart disease of native coronary artery without angina pectoris; E78.5 Hyperlipidemia, unspecified; K21.9 Gastro-esophageal reflux disease without esophagitis; M19.031 Primary osteoarthritis, right wrist; W01.0XXA Fall on same level from slipping, tripping and stumbling without subsequent striking against object, initial encounter
CPT/HCPCS: 70450; 72125; 73630; 99284; A9270

== ENCOUNTER 2023-09-16 16:07 | Emergency (ER) | payer MEDICARE, MEDICAID, SELFPAY ==
[2023-09-16] VITALS (16 sets, daily range): BP systolic 133–183; BP diastolic 59–90; PULSE 96–128; RESP 16–24; TEMP 36.6; O2SAT 93–100
--- NOTE | ~2023-09-16 | CT_ITS ---
EXAMINATION: CT abdomen pelvis w con DATE: 09/16/2023 20:24 INDICATION: Abdomen pain and diarrhea TECHNIQUE: Computed tomography (CT) of the abdomen and pelvis was performed with 100 cc Omnipaque 350 intravenous contrast. The dose-length product was 804.74 mGy-cm. Automated exposure control and iterative reconstruction technique were employed. COMPARISON: CT dated 06/02/2005 FINDINGS: Dependent atelectasis. Heart size normal. Moderate size hiatal hernia. Fatty infiltration o f the liver. There are calcified granulomas of the spleen. There is atherosclerosis of the aorta with out aneurysm. There is fluid throughout the small bowel and colon with scattered air-fluid levels, greenwood spicious for enteritis. Colonic diverticulosis without evidence for diverticulitis. No obstruction. N o free air or free fluid. No lymphadenopathy. There is a low-lying cecum. There is pelvic relaxation. The pancreas, adrenal glands and kidneys are unremarkable. Severe lower thoracic and lumbar spondylo sis with grade 1 degenerative spondylolisthesis at L3-4. There is an intramedullary lorenzo in the right femur. IMPRESSION: 1. Fluid throughout small bowel and colon without significant dilation or obstruction, suspicious for enteritis. Reviewed, dictated and finalized at location A. [place] FORMER IMPRESSION: 1. Fluid throughout small bowel and colon without significant dilation or obstr uction, suspicious for enteritis.
--- NOTE | ~2023-09-16 | XR_ITS ---
EXAMINATION: XR chest 1V portable 09/16/2023 19:01 INDICATION: Cough PROCEDURE: AP portable chest COMPARISON: Comparison to multiple prior studies sequentially, with oldest reviewed study dated 12/14/2006. FINDINGS: The lungs are clear. The cardiomediastinal silhouette is within normal limits. There are no pleural effusions. There is no pneumothorax suspected. IMPRESSION: 1: NO ACUTE CARDIOPULMONARY DISEASE. Reviewed, dictated and finalized at location A. LEAF PRINTER
[2023-09-16 16:46] LABS: Basophils Percent Auto 0.4 % (0.2-1.2); Eosinophils Percent Auto 0.2 % (0-4.4); Hematocrit 42.9 % (37.0-47.0); Hemoglobin 14.1 g/dL (12.0-15.0); Immature Granulocyte Absolute 0.05 K/mm3 (0.00-0.031); Immature Granulocyte Percent A 0.5 % (0-0.5); Lymphocytes Absolute Auto 0.37 K/mm3 (0.9-3.2); Lymphocytes Percent Auto 3.4 % (18.3-44.2); Mean Corpuscular HGB Conc 32.9 g/dl (32-36); Mean Corpuscular Hemoglobin 31.1 pg (26-34); Mean Corpuscular Volume 94.5 fl (80-100); Mean Platelet Volume 9.9 fl (7.4-10.4); Monocytes Absolute Auto 0.3 K/mm3 (0.1-0.6); Monocytes Percent Auto 2.5 % (2.6-8.5); Neutrophils Absolute Auto 10.3 K/mm3 (1.3-6.7); Platelet Count Result 290 k/mm3 (150-375); Red Blood Count 4.54 M/mm3 (4.2-5.4); Red Cell Distribution Width 12.8 % (11.5-14.5)
[2023-09-16 17:46] LABS: Alanine Aminotransferase 22 U/L (6-35); Albumin Level 4.6 g/dL (3.5-5.1); Alkaline Phosphatase 66 U/L (38-126); Anion Gap 11 mmol/L (8-16); Aspartate Amino Transferase 29 U/L (14-36); Bilirubin,Total 0.8 mg/dL (0.2-1.3); Blood Urea Nitrogen 16 mg/dL (7-17); Calcium 9.4 mg/dL (8.4-10.2); Carbon Dioxide 25 mmol/L (22-30); Chloride 102 mmol/L (98-107); Estimated CRCL calculation 53 ml/min; Estimated Glomerular Filt Rate > 60; Glucose 132 mg/dL (65-110); Lipase 127 U/L (23-300); Potassium 4.1 mmol/L (3.4-5.0); Sodium 138 mmol/L (137-145)
[2023-09-16 17:46] LABS: Appearance Urine Clear (Clear); Bacteria Urine None Seen /hpf; Bilirubin Urine Negative (Negative); Blood Urine Negative (Negative); Color Urine Yellow (Yellow); Glucose Urine UA Negative (Negative); Ketones Urine Negative (Negative); Leukocyte Esterase Ur Trace LEU/UL (Negative); Nitrate Urine Negative (Negative); Non Pathogenic Casts 0-2; Protein Urine Trace mg/dL (Negative); Specific Grav Ur 1.025 (1.001-1.035); Squamous Epithelial Cell Urine None seen /hpf (Few); Urobilinogen Urine 0.2 mg/dL (<2.0)
[2023-09-16 17:59] LABS: Add Urine Microscopic? YES
--- NOTE | 2023-09-16 18:23 | ECG_ITS ---
Measurements Intervals [place] Rate: 113 P: 52 [place]: 130 QRS: 47 QRSD: 83 T: 54 QT: 318 QTc: 436 Interpretive Statements SINUS TACHYCARDIA WITH FREQUENT SUPRAVENTRICULAR PREMATURE COMPLEXES ABNORMAL RHYTHM ECG COMPARED TO ECG 07/23/2021 08:09:59 SINUS TACHYCARDIA NOW PRESENT, APCS ARE NEW Electronically Signed On 09-17-2023 13:38:05 PROPERTY WORKER by Ayesha Bone M.D.
[2023-09-16] MEDS: ONDANSETRON INJ 4 MG/2 ML VIAL IV PUSH (18:24)
[2023-09-16] MEDS: SODIUM CHLORIDE 0.9% IV 500 ML 999 ML IV CONT (18:24)
--- NOTE | 2023-09-16 18:25 | ED.NAVMDI ---
HPI - Nausea/Vomiting/Diarrhea General Chief complaint: Nausea/Vomiting/Diarrhea Stated complaint: nausea, vomitting, diarrhea Time Seen by Provider: 09/16/23 17:27 Source: patient Mode of arrival: EMS Limitations: no limitations History of Present Illness HPI Narrative: This is a 88 year old female that presents to the ER for abdominal pain and diarrhea. Reports some nausea and vomiting as well. Also reports a cough and congestion which has been ongoing for weeks. Reports chest pain from coughing. Denies fever, shortness of breath or dysuria. Related Data Allergies Allergy/AdvReac Type Severity Reaction Status Date / Time etodolac Allergy Unknown RASH Verified 07/23/21 07:38 Review of Systems Review of Systems: CONSTITUTIONAL: Denies fever, ENT: Reports rhinorrhea, congestion CARDIOVASCULAR: Reports chest pain RESPIRATORY: Reports cough. Denies dyspnea. GASTROINTESTINAL: Reports abdominal pain, nausea, vomiting, and diarrhea. GENITOURINARY: Denies dysuria All systems reviewed & are unremarkable except as noted in HPI and below PMFSH Past Medical History Medical History Arthritis of wrist, right, degenerative Constipation Fracture of radius, distal, right, closed History of coronary artery disease History of gastroesophageal reflux (GERD) History of hyperlipidemia Shortness of breath Urinary frequency Vision changes Wears glasses Social History Social History Smoking status: Never smoker Alcohol intake: never Exam Narrative: GENERAL: Elderly, well-nourished, and in no acute distress. HEAD: Normocephalic, atraumatic. EYES: EOMI. ENT: Nares clear, no rhinorrhea or epistaxis. Mucous membranes moist. Oropharynx without tonsillar hypertrophy exudate or other lesions. NECK: Supple. No adenopathy or masses. CHEST: No respiratory distress. Expiratory wheezing bilaterally. No rales or rhonchi HEART: Regular rate and rhythm. No murmur heard. Normal peripheral pulses. ABDOMEN: Soft, nondistended, normal active bowel sounds. Tender to palpation in the mid abdomen, without guarding EXTREMITIES: Normal range of motion. No edema. SKIN: Warm, dry, no rash. NEURO: No focal deficits. Alert and oriented x3. PSYCH: Normal mood and affect Course Course Emergency Course: Patient updated on her workup and agrees with plan of care. Lungs are clear after nebulizer treatment Vital Signs Vital signs: Vital Signs Temperature 97.9 F 09/16/23 15:57 Pulse Rate 117 H 09/16/23 15:57 Respiratory Rate 20 09/16/23 15:57 Blood Pressure 183/90 H 09/16/23 15:57 Pulse Oximetry 96 09/16/23 15:57 Oxygen Delivery Room Air 09/16/23 15:57 Temperature 97.9 F 09/16/23 15:57 Pulse Rate 114 H 09/16/23 21:01 Respiratory Rate 20 09/16/23 20:46 Blood Pressure 142/59 H 09/16/23 20:46 Pulse Oximetry 93 09/16/23 21:01 Oxygen Delivery Room Air 09/16/23 15:57 MDM - Nausea/Vomiting/Diarrhea MDM Narrative Medical decision making narrative: Patient presents to the ER for viral symptoms. Reporting nausea and vomiting as well as respiratory symptoms. She is afebrile and nontoxic appearing. Patient was tachycardic, was given her home metoprolol dose. Heart rate is now normal. Oxygen saturation is normal on room air. She did have some wheezing initially which was relieved with nebulizer treatment and steroid. CBC with mild leukocytosis to 11. Metabolic panel without concerning findings. Lipase is normal. UA with possible evidence of infection. This will be sent for culture. Chest x-ray without acute cardiopulmonary abnormality. CT scan abdomen and pelvis shows findings consistent with enteritis. Patient was hydrated. Able to tolerate p.o. challenge. Will be started on oral antibiotics to treat for possible UTI as well as COPD exacerbation. Will continue oral steroid. She is to follow up wi
[2023-09-16] MEDS: IPRATROPIUM BR 0.02% INH SOLN 0.5 MG/2.5 ML VIAL INHALATION (18:36)
[2023-09-16] MEDS: ALBUTEROL SULFATE NEB 2.5 MG/3 ML INH INHALATION (18:36)
[2023-09-16 18:57] LABS: Troponin I < 0.012 ng/mL (0.000-0.034)
[2023-09-16 18:57] LABS: Influenza A QL RT-PCR Negative (Negative); Influenza B QL RT-PCR Negative (Negative); SARS-CoV-2 RNA PCR Negative (Negative)
[2023-09-16] MEDS: methylPREDNISolone SOD SUCC 125 MG VIAL IV PUSH (18:59)
[2023-09-16] MEDS: METOPROLOL TARTRATE 50 MG TAB PO (20:48)
--- NOTE | 2023-09-16 22:36 | PC.NURSE ---
Report called to IDANIA Blunt, at [facility]. All questions answered. Transport ETA [id number].
== END 2023-09-16 23:03 ==
PROVIDERS: Emergency Medicine; Emergency Provider Physician Assistant; PCP Family Medicine Adolescent Medicine
DX: J44.1 Chronic obstructive pulmonary disease with (acute) exacerbation (principal); K52.9 Noninfective gastroenteritis and colitis, unspecified; R82.81 Pyuria; E78.5 Hyperlipidemia, unspecified; I25.10 Atherosclerotic heart disease of native coronary artery without angina pectoris; Z20.822 Contact with and (suspected) exposure to COVID-19
CPT/HCPCS: 36415; 71045; 74177; 80053; 81001; 83690; 84484; 85025; 87086; 87088; 87636; 93005; 94640; 96361; 96374; 96375; 99284; A9270; J2405; J2930; J7040; Q9967

== ENCOUNTER 2023-10-29 20:50 | Emergency (ER) | payer MEDICARE, MEDICAID, SELFPAY ==
--- NOTE | ~2023-10-29 | XR_ITS ---
EXAMINATION: XR chest 2V Exam Date/Time: 10/29/2023 21:25 FACTORY MAINTENANCE MANAGER HISTORY: cough Comparison: 09/16/2023, 06/26/2021. RESULT: Lines, tubes, and devices: None. Lungs and pleura: Senescent change. Granulomatous calcifications. Cardiomediastinal silhouette: Stable. Other: No acute osseous or upper abdominal finding. IMPRESSION: No acute cardiopulmonary process. Reviewed, dictated and finalized at location K. ORY MAINTENANCE MANAGER
[2023-10-29 20:53] VITALS: BP 161/114; PULSE 85; RESP 22; TEMP 36.6; O2SAT 100
--- NOTE | 2023-10-29 20:58 | ECG_ITS ---
Measurements Intervals [place] Rate: 75 P: [place]: 0 QRS: 21 QRSD: 101 T: 43 QT: 399 QTc: 446 Interpretive Statements DIFFICULT TO DISCERN RHYTHM GIVEN BASELINE ARTIFACT, HOWEVER, SUSPECT SINUS RHYTHM COMPARED TO ECG 09/16/2023 18:45:59 BASELINE ARTIFACT LIMITS INTERPRETATION, HOWEVER, NO SIGNFIICANT CHANGES Electronically Signed On 10-30-2023 8:44:13 CUT OFF MACHINE HELPER by Krista Walton M.D.
[2023-10-29 21:29] LABS: Basophils Absolute Auto 0.1 K/mm3 (0.0-0.1); Basophils Percent Auto 1.4 % (0.2-1.2); Eosinophils Absolute Auto 0.3 K/mm3 (0-0.3); Eosinophils Percent Auto 5.8 % (0-4.4); Hematocrit 38.8 % (37.0-47.0); Hemoglobin 12.5 g/dL (12.0-15.0); Immature Granulocyte Absolute 0.02 K/mm3 (0.00-0.031); Immature Granulocyte Percent A 0.4 % (0-0.5); Lymphocytes Absolute Auto 0.94 K/mm3 (0.9-3.2); Lymphocytes Percent Auto 18.9 % (18.3-44.2); Mean Corpuscular HGB Conc 32.2 g/dl (32-36); Mean Corpuscular Hemoglobin 30.7 pg (26-34); Mean Corpuscular Volume 95.3 fl (80-100); Mean Platelet Volume 9.8 fl (7.4-10.4); Monocytes Absolute Auto 0.5 K/mm3 (0.1-0.6); Monocytes Percent Auto 10.8 % (2.6-8.5); Neutrophils Absolute Auto 3.1 K/mm3 (1.3-6.7); Neutrophils Percent Auto 62.7 % (45.5-73.1); Platelet Count Result 225 k/mm3 (150-375); Red Blood Count 4.07 M/mm3 (4.2-5.4); Red Cell Distribution Width 13.3 % (11.5-14.5)
[2023-10-29 21:44] LABS: Alanine Aminotransferase 20 U/L (6-35); Alkaline Phosphatase 62 U/L (38-126); Anion Gap 7 mmol/L (8-16); Aspartate Amino Transferase 25 U/L (14-36); Bilirubin,Total 0.5 mg/dL (0.2-1.3); Blood Urea Nitrogen 11 mg/dL (7-17); Calcium 9.6 mg/dL (8.4-10.2); Carbon Dioxide 25 mmol/L (22-30); Chloride 103 mmol/L (98-107); Estimated CRCL calculation 47 ml/min; Estimated Glomerular Filt Rate > 60; Glucose 119 mg/dL (65-110); Potassium 3.8 mmol/L (3.4-5.0); Sodium 135 mmol/L (137-145)
[2023-10-29 21:57] LABS: Influenza A QL RT-PCR Negative (Negative); Influenza B QL RT-PCR Negative (Negative); RSV RNA, RT-PCR Negative (Negative); SARS-CoV-2 RNA PCR Negative (Negative)
--- NOTE | 2023-10-29 23:30 | ED.GENADULT ---
HPI - General Adult General Chief complaint: Shortness of Breath/Dyspnea Stated complaint: cough/SOB Time Seen by Provider: 10/29/23 23:16 History of Present Illness HPI narrative: patient is a 88-year-old female who presents emergency department with chief complaint of cough. Patient reports last several days she has had a productive cough patient denies fever does reports she has prior history of COPD. Related Data Allergies Allergy/AdvReac Type Severity Reaction Status Date / Time etodolac Allergy Unknown RASH Verified 07/23/21 07:38 Review of Systems Review of Systems: A 10 system review of systems was completed on the patient and is negative except for what is stated in the HPI. Nursing and ancillary documentation was reviewed. [facility] Past Medical History Medical History Arthritis of wrist, right, degenerative Constipation Fracture of radius, distal, right, closed History of coronary artery disease History of gastroesophageal reflux (GERD) History of hyperlipidemia Shortness of breath Urinary frequency Vision changes Wears glasses Social History Social History Smoking status: Never smoker Alcohol intake: never Exam Narrative: GENERAL: Well-appearing, well-nourished, and in no acute distress. HEAD: Normocephalic, atraumatic. EYES: PERRLA and EOMI. ENT: Nares clear, no rhinorrhea or epistaxis. Mucous membranes moist. NECK: Supple. CHEST: Clear to auscultation. No respiratory distress. HEART: Regular rate and rhythm. No murmur heard. Normal peripheral pulses. ABDOMEN: Soft, nontender, nondistended, normal active bowel sounds. EXTREMITIES: Normal range of motion. No edema. SKIN: Warm, dry, no rash. NEURO: No focal deficits. Alert and oriented x3. PSYCH: Normal mood and affect. Course Vital Signs Vital signs: Vital Signs Temperature 36.6 C 10/29/23 20:53 Pulse Rate 85 10/29/23 20:53 Respiratory Rate 22 H 10/29/23 20:53 Blood Pressure 161/114 H 10/29/23 20:53 Pulse Oximetry 100 10/29/23 20:53 Oxygen Delivery Room Air 10/29/23 20:53 Temperature 36.6 C 10/29/23 20:53 Pulse Rate 85 10/29/23 20:53 Respiratory Rate 22 H 10/29/23 20:53 Blood Pressure 161/114 H 10/29/23 20:53 Pulse Oximetry 100 10/29/23 20:53 Oxygen Delivery Room Air 10/29/23 20:53 Medical Decision Making MDM Narrative Medical decision making narrative: Differential diagnosis includes viral bronchitis, pneumonia, chest x-ray showed no focal infiltrate COVID flu and RSV were negative patient received DuoNeb in the emergency department also given a dose of Tessalon Perles and a dose of steroid. The patient discharged home with a prescription for Tessalon Perles and for a steroid Vital Signs Vital Signs: Vital Signs Temperature 36.6 C 10/29/23 20:53 Pulse Rate 85 10/29/23 20:53 Respiratory Rate 22 H 10/29/23 20:53 Blood Pressure 161/114 H 10/29/23 20:53 Pulse Oximetry 100 10/29/23 20:53 Oxygen Delivery Room Air 10/29/23 20:53 Temperature 36.6 C 10/29/23 20:53 Pulse Rate 85 10/29/23 20:53 Respiratory Rate 22 H 10/29/23 20:53 Blood Pressure 161/114 H 10/29/23 20:53 Pulse Oximetry 100 10/29/23 20:53 Oxygen Delivery Room Air 10/29/23 20:53 Lab Data 10/29/23 21:20 10/29/23 21:20 Labs: Lab Results 10/29/23 10/29/23 Range/Units 21:16 21:20 WBC 5.0 (4.5-10.0) K/mm3 RBC 4.07 L (4.2-5.4) M/mm3 Hgb 12.5 (12.0-15.0) g/dL Hct 38.8 (37.0-47.0) % MCV 95.3 (80-100) fl MCH 30.7 (26-34) pg MCHC 32.2 (32-36) g/dl RDW 13.3 (11.5-14.5) % Plt Count 225 (150-375) k/mm3 MPV 9.8 (7.4-10.4) fl Immature Gran % (Auto) 0.4 (0-0.5) % Neut % (Auto) 62.7 (45.5-73.1) % Lymph % (Auto) 18.9 (18.3-44.2) % [place] % (Auto) 10.8 H (2.6-
[2023-10-29 23:43] VITALS: PULSE 72; RESP 17
[2023-10-29] MEDS: IPRATROPIUM 0.5 MG/ALBUTEROL SULFATE 2.5 MG AMPUL.NEB 3 ML INHALATION (23:43)
[2023-10-29 23:49] VITALS: PULSE 79; RESP 17
[2023-10-30] MEDS: predniSONE 20 MG TABLET 60 MG PO (00:02)
[2023-10-30] MEDS: BENZONATATE 100 MG CAPSULE 200 MG PO (00:02)
[2023-10-30 00:03] VITALS: BP 127/81; PULSE 77; RESP 15; O2SAT 97
--- NOTE | 2023-10-30 00:11 | ECG_ITS ---
Measurements Intervals [place] Rate: 72 P: 61 [place]: 159 QRS: 44 QRSD: 83 T: 41 QT: 385 QTc: 423 Interpretive Statements SINUS RHYTHM COMPARED TO ECG 10/29/2023 21:08:31 NO SIGNIFICANT CHANGES Electronically Signed On 10-30-2023 8:46:28 MACROECONOMICS PROFESSOR by Krista Walton M.D.
== END 2023-10-30 03:44 ==
PROVIDERS: Emergency Provider Emergency Medicine; PCP Family Medicine Adolescent Medicine
DX: J44.1 Chronic obstructive pulmonary disease with (acute) exacerbation (principal); Z20.822 Contact with and (suspected) exposure to COVID-19; I25.10 Atherosclerotic heart disease of native coronary artery without angina pectoris; E78.5 Hyperlipidemia, unspecified; K21.9 Gastro-esophageal reflux disease without esophagitis; M19.031 Primary osteoarthritis, right wrist
CPT/HCPCS: 36415; 71046; 80053; 85025; 87637; 93005; 94640; 99284; A9270; J7512

== ENCOUNTER 2024-01-17 02:29 | Emergency (ER) | payer MEDICARE, MEDICAID, SELFPAY ==
--- NOTE | ~2024-01-17 | CT_ITS ---
CT head without contrast Indication: Status post fall COMPARISON: 01/20/2023 Technique: Serial scans were obtained through the brain without the administration of contrast. Dose reduction technique was used on this scan by utilizing automated exposure control and iterative recon struction technique. The dose-length product (DLP) was 681.00 mGy-cm. Findings: There is no evidence of intracranial hemorrhage, mass lesion, or acute infarct. The ventri cles and subarachnoid spaces are dilated, consistent with moderate atrophy. Low attenuation regions are seen within the periventricular white matter bilaterally, likely representing changes from chroni c microvascular ischemic disease. There is no evidence of edema, mass effect or midline shift. There is left sphenoid sinus disease. The remaining visualized paranasal sinuses and mastoid air cells are clear. Impression: No intracranial hemorrhage, mass, or acute infarct. Atrophy and chronic white matter changes, as above. Left sphenoid sinus disease. Reviewed, dictated and finalized at [facility]. Impression: No intracranial hemorrhage, mass, or acute infarct. Atrophy and chronic white matter changes, as above. Left sphenoid sinus disease.
--- NOTE | ~2024-01-17 | XR_ITS ---
AP view of the pelvis and AP and lateral views of the right hip Clinical history: Pain Findings: No acute fracture or dislocation is seen. There is moderate bilateral hip joint degenerativ e change. Right femoral intramedullary lorenzo is partially imaged. Soft tissues are unremarkable. Impression: No acute fracture or dislocation seen. If there is persistent clinical concern for occult fracture th en MR would be recommended for most sensitive evaluation. Moderate bilateral hip joint osteoarthritis. Reviewed, dictated and finalized at location M. Impression: No acute fracture or dislocation seen. If there is persistent clinical concern for occult fracture then MR would be recommended for most sensitive evaluation. Moderate bilateral hip joint osteoarthritis.
--- NOTE | ~2024-01-17 | CT_ITS ---
Noncontrast CT scan of the cervical spine Technique: Multiple contiguous axial [address] images of the cervical spine were obtained and rec onstructed in 2D sagittal and coronal planes on the acquisition scanner. Dose reduction technique was used on this scan by utilizing automated exposure control, adjustment of the mA and/or kV according to patient size. The dose-length product (DLP) was 540.80 mGy-cm. Clinical History: Pain COMPARISON: 01/20/2023 Findings: No acute fracture identified. Osseous alignment is stable from prior exam. Stable grade 1 a nterolisthesis of C3 over C4, and of C4 over C5. There is severe degenerative disc narrowing at C5-C6 and C6-C7, with mild degenerative change at the remaining cervical levels. There are extensive facet joint degenerative changes throughout the cervical spine bilaterally. There is severe degenerative c hanges of the articulation of the odontoid process with the anterior arch of C1. Possible focal moder ate canal stenosis at the C1-C2 level related to pannus formation from degenerative change at the tania antoaxial articulation. There is right neural foraminal narrowing at C2-C3. There is bilateral neural foraminal narrowing at C3-C4, C4-C5, C5-C6, and C6-C7. No prevertebral soft tissue swelling. Impression: No acute fracture. Stable grade 1 anterolisthesis of C3 over C4, and of C4 over C5. Severe degenerative spondylitic changes throughout the cervical spine, as detailed above. These appea r similar to prior exam. Reviewed, dictated and finalized at [facility]. Impression: No acute fracture. Stable grade 1 anterolisthesis of C3 over C4, and of C4 over C5. Severe degenerative spondylitic changes throughout the cervical spine, as detai led above. These appear similar to prior exam.
[2024-01-17 02:37] VITALS: BP 165/82; PULSE 69; RESP 15; TEMP 37.2; O2SAT 98
--- NOTE | 2024-01-17 02:41 | ECG_ITS ---
SEE SCANNED COPY FOR CONFIRMED REPORT MTDD
--- NOTE | 2024-01-17 03:41 | ED.FALL ---
HPI - Fall General Chief Complaint: Fall Stated Complaint: fall Time Seen by Provider: 01/17/24 02:54 History of Present Illness HPI Narrative: Patient is an 88-year-old female who presents to the emergency department this evening after a fall from bed. Patient states that she wanted to use the restroom and was calling for them to come help and nobody would come so she purposely slide out of her bed. Patient admits that she did hit her head on the ground, denies any loss of consciousness, and is currently only complaining of right hip pain. Patient is alert and oriented to person, place, time and situation and has no additional concerns at this time. Related Data Home Medications Medication Instructions Recorded Confirmed acetaminophen 500 mg tablet 500 mg PO Q6H PRN 11/23/23 01/03/24 buspirone 5 mg tablet 5 mg PO TID 11/23/23 01/03/24 cetirizine 10 mg capsule (All Day 10 mg PO DAILY PRN 11/23/23 01/03/24 Allergy (cetirizine)) cholecalciferol (vitamin D3) 125 125 mcg PO DAILY 11/23/23 01/03/24 mcg (5,000 unit) tablet docusate sodium 100 mg capsule 100 mg PO BID 11/23/23 01/03/24 fluticasone propionate 50 1 spray intranasal DAILY 11/23/23 01/03/24 mcg/actuation nasal spray,suspension (Flonase Allergy Relief) guaifenesin 400 mg tablet 400 mg PO QID 11/23/23 01/03/24 ipratropium 0.5 mg-albuterol 3 mg 3 ml inhalation Q6H PRN 11/23/23 01/03/24 (2.5 mg base)/3 mL nebulization soln metoprolol tartrate 50 mg tablet 50 mg PO BID 11/23/23 01/03/24 omeprazole 20 mg capsule,delayed 20 mg PO DAILY 11/23/23 01/03/24 release ondansetron 4 mg disintegrating 4 mg PO Q8H 11/23/23 01/03/24 tablet quetiapine 25 mg tablet (Seroquel) 25 mg PO QHS 11/23/23 01/03/24 sertraline 25 mg tablet 25 mg PO DAILY 11/23/23 01/03/24 simvastatin 40 mg tablet 40 mg PO DAILY 11/23/23 01/03/24 tramadol 50 mg tablet 50 mg PO Q6H PRN 11/23/23 01/03/24 Allergies Allergy/AdvReac Type Severity Reaction Status Date / Time etodolac Allergy Unknown RASH Verified 11/23/23 10:05 Review of Systems Review of Systems: All systems are reviewed and are negative unless stated otherwise in the HPI. [facility] Past Medical History Medical History Arthritis of wrist, right, degenerative Constipation Fracture of radius, distal, right, closed History of coronary artery disease History of gastroesophageal reflux (GERD) History of hyperlipidemia Shortness of breath Urinary frequency Vision changes Wears glasses Social History Social History Smoking status: Never smoker Alcohol intake: never Exam Narrative: General: Alert, awake, afebrile, in no acute distress. HEENT: PERRL, no evidence of trauma, no cervical midline spine tenderness to palpation. Cardiovascular: Regular rate and rhythm, no murmurs, rubs or gallops, no peripheral edema. Respiratory: Clear to auscultation bilaterally, no tachypnea, no wheezing, no rhonchi, no rubs, no respiratory distress. Abdomen: Soft, nontender, nondistended, no rebound, no guarding, no peritoneal signs. Musculoskeletal: No joint swelling or deformity, normal muscle tone, tenderness to palpation over the hip joint, patient is able to flex and extend her right lower extremity at the hip and knee joints. Skin: No rashes or petechia, no signs of infection. Psychiatric: Alert and oriented, normal behavior and judgment for situation. Neurological: Alert and oriented to person, place, and time. Follows all commands. No focal deficits, speech is clear and fluent. Course Vital Signs Vital signs: Vital Signs Temperature 98.9 F 01/17/24 02:37 Pulse Rate 69 01/17/24 02:37 Respiratory Rate 15 01/17/24 02:37 Blood Pressure 165/82 H 01/17/24 02:37 Pulse Oximetry 98 01/17/24 02:37 Oxygen Delivery Room Air 01/17/24 02:37 Temperature 98.9 F 01/17/24 02:37 Pulse Rate 69
[2024-01-17 03:50] LABS: Appearance Urine Clear (Clear); Bacteria Urine None Seen /hpf; Bilirubin Urine Negative (Negative); Blood Urine Negative (Negative); Color Urine Yellow (Yellow); Glucose Urine UA Negative (Negative); Ketones Urine Negative (Negative); Leukocyte Esterase Ur 1+ LEU/UL (Negative); Need Manual Microscopic Reviewed; Nitrate Urine Negative (Negative); Non Pathogenic Casts 0-2; Protein Urine Negative (Negative); RBC Urine 0-2 /hpf (0-2); Specific Grav Ur 1.004 (1.001-1.035); Squamous Epithelial Cell Urine None Seen /hpf (Few); Urobilinogen Urine 0.2 mg/dL (<2.0); WBC Urine 0-5 /hpf (0-3)
[2024-01-17 03:57] LABS: Add Urine Microscopic? YES
[2024-01-17 06:58] VITALS: BP 132/85; PULSE 82; RESP 14; O2SAT 99
--- NOTE | 2024-01-17 06:59 | PC.NURSE ---
Report called to Anay EMERSON at [facility] [place] @[id number]
== END 2024-01-17 07:32 ==
PROVIDERS: Emergency Provider Emergency Medicine; PCP Family Medicine Adolescent Medicine
DX: S79.911A Unspecified injury of right hip, initial encounter (principal); S09.90XA Unspecified injury of head, initial encounter; J32.3 Chronic sphenoidal sinusitis; I25.10 Atherosclerotic heart disease of native coronary artery without angina pectoris; E78.5 Hyperlipidemia, unspecified; K21.9 Gastro-esophageal reflux disease without esophagitis; M19.031 Primary osteoarthritis, right wrist; M16.0 Bilateral primary osteoarthritis of hip; M47.812 Spondylosis without myelopathy or radiculopathy, cervical region; W06.XXXA Fall from bed, initial encounter
CPT/HCPCS: 70450; 72125; 73502; 81001; 93005; 99284

== ENCOUNTER 2024-01-31 09:36 | Outpatient (CLI) | payer MEDICARE, MEDICAID, SELFPAY ==
--- NOTE | ~2024-01-31 | CT_ITS ---
EXAMINATION: CT hip RT wo con DATE: 01/31/2024 10:22 INDICATION: Right hip pain TECHNIQUE: High resolution computed tomography (CT) of the right hip was performed without intravenou s contrast. Additional sagittal and coronal reconstructions were performed. Automated exposure contro l and iterative reconstruction technique were employed. The dose-length product was 791.51 mGy-cm. COMPARISON: Right hip radiographs dated 01/17/2024 FINDINGS: The proximal tip of a partially visualized retrograde intramedullary lorenzo extends to the intratrochant italo right femur with a proximal interlocking screw at this level. Bone alignment is normal. No acute fracture. Severe lower lumbar spondylosis. Chondrocalcinosis and moderate osteoarthritis at the righ t hip. No right hip joint effusion. There is also moderate osteoarthritis at the right sacroiliac joel nt. Sigmoid diverticulosis without adjacent from trace stranding to suggest diverticulitis. Bladder i s normal. The uterus is not identified and has likely been surgically resected. No free fluid in the visualized pelvis. No pathologically enlarged right pelvic or inguinal lymphadenopathy. IMPRESSION: 1. Chondrocalcinosis and moderate osteoarthritis at the right hip. No acute osseous abnormality. 2. Severe lower lumbar spondylosis. 3. Sigmoid diverticulosis. 4. Partially visualized intramedullary lorenzo fixation of the right femur extending distally from the in tratrochanteric region. Reviewed, dictated and finalized at location A. IMPRESSION: 1. Chondrocalcinosis and moderate osteoarthritis at the right hip. No acute oss eous abnormality. 2. Severe lower lumbar spondylosis. 3. Sigmoid diverticulosis. 4. Partially visualized intramedullary lorenzo fixation of the right femur extendin g distally from the intratrochanteric region.
== END 2024-01-31 09:37 | disposition home or self-care (01) ==
LOC: ANHIMG 09:38
PROVIDERS: PCP Family Medicine Adolescent Medicine; Visit Provider Family Medicine
DX: M47.896 Other spondylosis, lumbar region (principal); K57.30 Diverticulosis of large intestine without perforation or abscess without bleeding; M16.11 Unilateral primary osteoarthritis, right hip
CPT/HCPCS: 73700

== ENCOUNTER 2024-03-10 04:40 | Emergency (ER) | payer MEDICARE, MEDICAID, SELFPAY ==
[2024-03-10] VITALS (15 sets, daily range): BP systolic 135–158; BP diastolic 56–119; PULSE 77–99; RESP 14–21; TEMP 36.8–37; O2SAT 94–100
--- NOTE | ~2024-03-10 | CT_ITS ---
EXAMINATION: CT cervical spine wo con DATE: 03/10/2024 06:28 INDICATION: Neck injury. TECHNIQUE: Computed tomography (CT) of the cervical spine was performed without intravenous contrast. Automated exposure control and iterative reconstruction technique were employed. The dose-length pro duct was 368.48 mGy-cm. COMPARISON: CT cervical spine 01/17/2024 FINDINGS: There is 2 mm anterolisthesis of C3 on C4, 3 mm anterolisthesis of C4 on C5, and 2 mm anter olisthesis of C7 on T1. There is 11 degrees dextroscoliosis of the cervicothoracic spine. There is mi ld chronic anterior wedging of T1 vertebral body. There is mildly decreased disc height at C2-C3, mod erately decreased disc height at C3-C4, mildly decreased disc height at C4-C5, and severely decreased disc height from C5-C6 through C7-T1. There is inflammatory pseudopannus around the dens. The follow ing disc levels are specifically discussed: C2-C3: There is mild bilateral uncovertebral joint osteoarthritis. There is severe bilateral facet lazarus int osteoarthritis. There is mild bilateral neural foraminal stenosis. There is mild central canal st enosis. C3-C4: There is severe bilateral uncovertebral joint osteoarthritis. There is severe bilateral facet joint osteoarthritis. There is moderate bilateral neural foraminal stenosis. There is mild central ca nal stenosis. C4-C5: There is severe bilateral uncovertebral joint osteoarthritis. There is severe bilateral facet joint osteoarthritis. There is moderate right and mild left neural foraminal stenosis. There is mild central canal stenosis. C5-C6: There is severe bilateral uncovertebral joint osteoarthritis. There is severe bilateral facet joint osteoarthritis. There is mild right and moderate left neural foraminal stenosis. There is mild central canal stenosis. C6-C7: There is severe bilateral uncovertebral joint osteoarthritis. There is severe bilateral facet joint osteoarthritis. There is mild bilateral neural foraminal stenosis. There is mild central canal stenosis. C7-T1: There is severe bilateral uncovertebral joint osteoarthritis. There is severe bilateral facet joint osteoarthritis. There is moderate right and mild left neural foraminal stenosis. There is mild central canal stenosis. IMPRESSION: 1. No fracture. 2. Severe cervical spondylosis. 3. Cervicothoracic dextroscoliosis. Reviewed, dictated and finalized at location E.
--- NOTE | ~2024-03-10 | XR_ITS ---
EXAMINATION: XR chest 1V DATE: 03/10/2024 06:37 INDICATION: Fall. TECHNIQUE: A single frontal view of the chest was obtained. COMPARISON: Chest 2 views 10/29/2023 FINDINGS: There are mild airspace opacities in left upper lobe. No pleural effusion or pneumothorax. The heart size is normal. IMPRESSION: 1. Mild airspace opacities in left lung upper lobe, consistent with atelectasis versus pneumonia. Reviewed, dictated and finalized at location E.
--- NOTE | ~2024-03-10 | XR_ITS ---
EXAMINATION: XR pelvis 1-2V DATE: 03/10/2024 06:37 INDICATION: Fall. TECHNIQUE: An anteroposterior view of the pelvis was obtained. COMPARISON: Pelvis radiograph 01/17/2024 FINDINGS: Bone alignment is normal. No acute fracture. There is internal fixation of right femur. The re is moderate osteoarthritis of the hips. There is severe lumbar spondylosis. IMPRESSION: 1. Moderate osteoarthritis of the hips. Reviewed, dictated and finalized at location E.
--- NOTE | ~2024-03-10 | CT_ITS ---
EXAMINATION: CT brain wo con DATE: 03/10/2024 06:28 INDICATION: Fall. TECHNIQUE: Computed tomography (CT) of the head was performed without intravenous contrast. The mA wa s adjusted according to patient size. Iterative reconstruction technique was employed. The dose-lengt h product was 681.00 mGy-cm. COMPARISON: Head CT 01/17/2024 FINDINGS: There are scattered areas of low attenuation in the cerebral white matter. There is no intr acranial hemorrhage, acute infarction, or abnormal intracranial mass lesion. The ventricles are lg l in size. There is mucosal thickening in the paranasal sinuses. There is thickening and sclerosis of the manzano of sphenoid sinus, consistent with chronic sinusitis. The mastoid air cells are normal. Th ere are likely changes of ocular lens replacement surgeries. IMPRESSION: 1. Stable moderate nonspecific cerebral white matter disease, which likely represents chronic small v essel ischemic disease. 2. Chronic sinusitis. Reviewed, dictated and finalized at location E. IMPRESSION: 1. Stable moderate nonspecific cerebral white matter disease, which likely repr esents chronic small vessel ischemic disease. 2. Chronic sinusitis.
--- NOTE | 2024-03-10 04:42 | ECG_ITS ---
Test Date: 2024-03-10 04:59:48 Measurements Intervals [place] Rate: 79 P: 58 OR: 139 QRS: 74 QRSD: 90 T: 91 QT: 365 QTc: 421 Interpretive Statements SINUS RHYTHM NORMAL ELECTROCARDIOGRAM No previous ECG available for comparison Electronically Signed On 03-10-2024 15:16:01 CDT by Renaldo Sullivan M.D.
--- NOTE | 2024-03-10 04:44 | ED.GENADULT ---
HPI - General Adult General Chief complaint: Fall Stated complaint: fall Time Seen by Provider: 03/10/24 04:41 History of Present Illness HPI narrative: this is an 89-year-old female from the long-term after an unwitnessed fall. Patient said that she fell out of a chair landing on her right side. She states she struck her head. She denies any prodromal symptoms. Patient says she feels short of breast but she has bad emphysema so this is her normal. patient has pain in the back her head, her right shoulder, her right thigh. Related Data Home Medications Medication Instructions Recorded Confirmed acetaminophen 500 mg tablet 500 mg PO Q6H PRN 11/23/23 01/24/24 buspirone 5 mg tablet 5 mg PO TID 11/23/23 01/24/24 cetirizine 10 mg capsule (All Day 10 mg PO DAILY PRN 11/23/23 01/24/24 Allergy (cetirizine)) cholecalciferol (vitamin D3) 125 125 mcg PO DAILY 11/23/23 01/24/24 mcg (5,000 unit) tablet docusate sodium 100 mg capsule 100 mg PO BID 11/23/23 01/24/24 fluticasone propionate 50 1 spray intranasal DAILY 11/23/23 01/24/24 mcg/actuation nasal spray,suspension (Flonase Allergy Relief) guaifenesin 400 mg tablet 400 mg PO QID 11/23/23 01/24/24 ipratropium 0.5 mg-albuterol 3 mg 3 ml inhalation Q6H PRN 11/23/23 01/24/24 (2.5 mg base)/3 mL nebulization soln metoprolol tartrate 50 mg tablet 50 mg PO BID 11/23/23 01/24/24 omeprazole 20 mg capsule,delayed 20 mg PO DAILY 11/23/23 01/24/24 release ondansetron 4 mg disintegrating 4 mg PO Q8H 11/23/23 01/24/24 tablet quetiapine 25 mg tablet (Seroquel) 25 mg PO QHS 11/23/23 01/24/24 sertraline 25 mg tablet 25 mg PO DAILY 11/23/23 01/24/24 simvastatin 40 mg tablet 40 mg PO DAILY 11/23/23 01/24/24 tramadol 50 mg tablet 50 mg PO Q6H PRN 11/23/23 01/24/24 Allergies Allergy/AdvReac Type Severity Reaction Status Date / Time etodolac Allergy Unknown RASH Verified 11/23/23 10:05 [facility] Past Medical History Medical History Arthritis of wrist, right, degenerative Constipation Fracture of radius, distal, right, closed History of coronary artery disease History of gastroesophageal reflux (GERD) History of hyperlipidemia Shortness of breath Urinary frequency Vision changes Wears glasses Social History Social History Smoking status: Never smoker Alcohol intake: never Exam Narrative: APPEARANCE: No apparent distress. Head: tenderness over the posterior scalp the laceration EYES: EOMI, NOSE: Atraumatic NECK: Trachea midline no midline tenderness RESPIRATORY: No increased rate of breathing scattered wheezing, productive cough CARDIOVASCULAR: RRR, +1 peripheral edema ABDOMINAL: Non-distended soft nontender MUSCULOSKELETAl: head to toe trauma exam revealed pain over the right shoulder over the right hip without deformity. NEURO: Alert. Moving 4/4 extremities SKIN:: Warm, dry. Normal color PSYCHIATRIC: Normal affect Course Vital Signs Vital signs: Vital Signs Temperature 98.6 F 03/10/24 04:40 Pulse Rate 77 03/10/24 04:40 Respiratory Rate 17 03/10/24 04:40 Blood Pressure 146/69 H 03/10/24 04:40 Pulse Oximetry 95 03/10/24 04:40 Oxygen Delivery Room Air 03/10/24 04:40 Temperature 98.6 F 03/10/24 04:40 Pulse Rate 87 03/10/24 06:00 Respiratory Rate 18 03/10/24 06:00 Blood Pressure 137/80 03/10/24 05:06 Pulse Oximetry 98 03/10/24 05:06 Oxygen Delivery Room Air 03/10/24 05:05 Medical Decision Making [facility] Narrative Medical decision making narrative: -Course: 89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 patient was coughing on arrival Which she says she typically does when she 1st wakes up. patient was given her morning breathing treatment with significant improvement. Trauma workup was negative for acute injuries.. laboratory studies normal. No indication of UTI. Vir
[2024-03-10] MEDS: IPRATROPIUM 0.5 MG/ALBUTEROL SULFATE 2.5 MG AMPUL.NEB 3 ML 12 ML INHALATION (05:04)
[2024-03-10] MEDS: ACETAMINOPHEN 500 MG TABLET 1000 MG PO (05:16)
[2024-03-10 05:21] LABS: Basophils Absolute Auto 0.1 K/mm3 (0.0-0.1); Basophils Percent Auto 1.1 % (0.2-1.2); Eosinophils Absolute Auto 0.2 K/mm3 (0-0.3); Eosinophils Percent Auto 4.5 % (0-4.4); Hematocrit 37.7 % (37.0-47.0); Immature Granulocyte Absolute 0.02 K/mm3 (0.00-0.031); Immature Granulocyte Percent A 0.5 % (0-0.5); Lymphocytes Absolute Auto 0.75 K/mm3 (0.9-3.2); Lymphocytes Percent Auto 16.9 % (18.3-44.2); Mean Corpuscular HGB Conc 31.8 g/dl (32-36); Mean Corpuscular Hemoglobin 29.4 pg (26-34); Mean Corpuscular Volume 92.4 fl (80-100); Monocytes Absolute Auto 0.4 K/mm3 (0.1-0.6); Monocytes Percent Auto 9.7 % (2.6-8.5); Neutrophils Percent Auto 67.3 % (45.5-73.1); Platelet Count Result 211 k/mm3 (150-375); Red Blood Count 4.08 M/mm3 (4.2-5.4); Red Cell Distribution Width 13.6 % (11.5-14.5); White Blood Count 4.4 K/mm3 (4.5-10.0)
[2024-03-10 05:23] LABS: Appearance Urine Clear (Clear); Bilirubin Urine Negative (Negative); Blood Urine Negative (Negative); Color Urine Yellow (Yellow); Glucose Urine UA Negative (Negative); Ketones Urine Negative (Negative); Leukocyte Esterase Ur Negative LEU/UL (Negative); Nitrate Urine Negative (Negative); Protein Urine Negative (Negative); Specific Grav Ur 1.009 (1.001-1.035); Urobilinogen Urine 0.2 mg/dL (<2.0)
[2024-03-10 05:31] LABS: Alanine Aminotransferase 23 U/L (6-35); Alkaline Phosphatase 58 U/L (38-126); Anion Gap 7 mmol/L (4-12); Aspartate Amino Transferase 31 U/L (14-36); Bilirubin,Total 0.5 mg/dL (0.2-1.3); Blood Urea Nitrogen 10 mg/dL (7-17); Calcium 9.4 mg/dL (8.4-10.2); Carbon Dioxide 27 mmol/L (22-30); Chloride 105 mmol/L (98-107); Estimated CRCL calculation 51 ml/min; Estimated Glomerular Filt Rate > 60; Glucose 118 mg/dL (65-110); Potassium 4.1 mmol/L (3.4-5.0); Sodium 139 mmol/L (137-145)
[2024-03-10 05:33] LABS: Add Urine Microscopic? NO
[2024-03-10 05:58] LABS: Influenza A QL RT-PCR Negative (Negative); Influenza B QL RT-PCR Negative (Negative); RSV RNA, RT-PCR Negative (Negative); SARS-CoV-2 RNA PCR Negative (Negative)
--- NOTE | 2024-03-10 07:02 | PC.NURSE ---
this rn attempted to call report to [facility]. attempt was unsuccessful.
== END 2024-03-10 10:03 ==
PROVIDERS: Emergency Provider Emergency Medicine; PCP Family Medicine Adolescent Medicine
DX: J43.9 Emphysema, unspecified (principal); Z20.822 Contact with and (suspected) exposure to COVID-19; K21.9 Gastro-esophageal reflux disease without esophagitis; I25.10 Atherosclerotic heart disease of native coronary artery without angina pectoris; W07.XXXA Fall from chair, initial encounter
CPT/HCPCS: 36415; 70450; 71045; 72125; 72170; 80053; 81003; 85025; 87637; 93005; 94640; 99284; A9270

== ENCOUNTER 2024-08-27 19:34 | Emergency (ER) | payer MEDICARE, MEDICAID, SELFPAY ==
--- NOTE | ~2024-08-27 | CT_ITS ---
CT of the Abdomen and Pelvis: Indication: Abdominal pain Technique: 2.5 mm axial scans were obtained through the abdomen and pelvis following intravenous adm inistration of 100 cc of Omnipaque 350. Dose reduction technique was used on this scan by utilizing a utomated exposure control and iterative reconstruction technique. The dose-length product (DLP) was 1 247.95 mGy-cm. COMPARISON: 01/31/2024 Findings: Scans through the lung bases are unremarkable. Small hiatal hernia noted. There is diffuse hepatic steatosis. The spleen, pancreas, adrenals and kidneys are within normal limi ts. Gallbladder absent. There are atherosclerotic calcifications of the aorta. No lymphadenopathy. No bowel obstruction or bowel wall thickening. There is no evidence to suggest acute appendicitis. Images through the pelvis were performed. Urinary bladder unremarkable. Status post hysterectomy. No pelvic mass seen. No ascites. 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 Impression: No acute abnormalities seen. Small hiatal hernia. Diffuse hepatic steatosis. Reviewed, dictated and finalized at [facility]. RIAL DAMAGE APPRAISER Impression: No acute abnormalities seen. Small hiatal hernia. Diffuse hepatic steatosis.
[2024-08-27 19:50] VITALS: BP 146/62; PULSE 77; RESP 16; TEMP 37; O2SAT 96
[2024-08-27 23:17] VITALS: BP 158/65; PULSE 77; RESP 15; O2SAT 96
[2024-08-27 23:43] LABS: Basophils Absolute Auto 0.1 K/mm3 (0.0-0.1); Basophils Percent Auto 1.4 % (0.2-1.2); Eosinophils Absolute Auto 0.2 K/mm3 (0-0.3); Eosinophils Percent Auto 4.1 % (0-4.4); Hematocrit 43.7 % (37.0-47.0); Hemoglobin 13.9 g/dL (12.0-15.0); Immature Granulocyte Absolute 0.01 K/mm3 (0.00-0.031); Immature Granulocyte Percent A 0.2 % (0-0.5); Lymphocytes Absolute Auto 1.06 K/mm3 (0.9-3.2); Lymphocytes Percent Auto 21.9 % (18.3-44.2); Mean Corpuscular HGB Conc 31.8 g/dl (32-36); Mean Corpuscular Volume 91.2 fl (80-100); Mean Platelet Volume 10.1 fl (7.4-10.4); Monocytes Absolute Auto 0.5 K/mm3 (0.1-0.6); Monocytes Percent Auto 9.5 % (2.6-8.5); Neutrophils Percent Auto 62.9 % (45.5-73.1); Platelet Count Result 249 k/mm3 (150-375); Red Blood Count 4.79 M/mm3 (4.2-5.4); Red Cell Distribution Width 14.7 % (11.5-14.5); White Blood Count 4.8 K/mm3 (4.5-10.0)
--- NOTE | 2024-08-27 23:45 | ED.ABDPAIN ---
HPI - Abdominal Pain General Chief Complaint: Abdominal Pain <ALCON Esteban Last Filed: 08/28/24 14:50> Stated Complaint: abd pain, N/V <ALCON Esteban Last Filed: 08/28/24 14:50> Time Seen by Provider: 08/27/24 23:28 <ALCON Esteban Last Filed: 08/28/24 14:50> Source: patient <ALCON Esteban Last Filed: 08/28/24 14:50> Mode of arrival: ambulatory <ALCON Esteban Last Filed: 08/28/24 14:50> Limitations: no limitations <ALCON Esteban Last Filed: 08/28/24 14:50> History of Present Illness HPI narrative: This is a 89-year-old female that presents to the emergency department for abdominal pain. Reports associated nausea and vomiting. Denies fevers, diarrhea, dysuria. <ALCON Esteban Last Filed: 08/28/24 14:50> Related Data Home Medications: Home Medications Medication Instructions Recorded Confirmed acetaminophen 500 mg tablet 500 mg PO Q6H PRN 11/23/23 07/17/24 buspirone 5 mg tablet 5 mg PO TID 11/23/23 07/17/24 cetirizine 10 mg capsule (All Day 10 mg PO DAILY PRN 11/23/23 07/17/24 Allergy (cetirizine)) cholecalciferol (vitamin D3) 125 125 mcg PO DAILY 11/23/23 07/17/24 mcg (5,000 unit) tablet docusate sodium 100 mg capsule 100 mg PO BID 11/23/23 07/17/24 fluticasone propionate 50 1 spray intranasal DAILY 11/23/23 07/17/24 mcg/actuation nasal spray,suspension (Flonase Allergy Relief) guaifenesin 400 mg tablet 400 mg PO QID 11/23/23 07/17/24 ipratropium 0.5 mg-albuterol 3 mg 3 ml inhalation Q6H PRN 11/23/23 07/17/24 (2.5 mg base)/3 mL nebulization soln metoprolol tartrate 50 mg tablet 50 mg PO BID 11/23/23 07/17/24 omeprazole 20 mg capsule,delayed 20 mg PO DAILY 11/23/23 07/17/24 release ondansetron 4 mg disintegrating 4 mg PO Q8H 11/23/23 07/17/24 tablet quetiapine 25 mg tablet (Seroquel) 25 mg PO QHS 11/23/23 07/17/24 sertraline 25 mg tablet 25 mg PO DAILY 11/23/23 07/17/24 simvastatin 40 mg tablet 40 mg PO DAILY 11/23/23 07/17/24 tramadol 50 mg tablet 50 mg PO Q6H PRN 11/23/23 07/17/24 <Barbra Fuller PA-C - Last Filed: 08/28/24 14:50> Allergies/Adverse Reactions: Allergies Allergy/AdvReac Type Severity Reaction Status Date / Time etodolac Allergy Unknown RASH Verified 11/23/23 10:05 <Barbra Fuller PA-C - Last Filed: 08/28/24 14:50> Review of Systems Review of Systems: CONSTITUTIONAL: Denies fever GASTROINTESTINAL: Reports abdominal pain, nausea, vomiting. Denies diarrhea. GENITOURINARY: Denies dysuria or hematuria. <Barbra Fuller PA-C - Last Filed: 08/28/24 14:50> All systems reviewed & are unremarkable except as noted in HPI and below <Barbra Fuller PA-C - Last Filed: 08/28/24 14:50> PMFSH Past Medical History Medical History: Medical History Arthritis of wrist, right, degenerative Constipation Fracture of radius, distal, right, closed History of coronary artery disease History of gastroesophageal reflux (GERD) History of hyperlipidemia Shortness of breath Urinary frequency Vision changes Wears glasses <ALCON Esteban Last Filed: 08/28/24 14:50> Social History Social History: Social History Smoking status: Never smoker Alcohol intake: never <Barbra Fuller PA-C - Last Filed: 08/28/24 14:50> Exam Narrative: GENERAL: Well-appearing, well-nourished, and in no acute distress. HEAD: Normocephalic, atraumatic. EYES: EOMI. CHEST: Clear to auscultation. No respiratory distress. No wheezes rales or rhonchi HEART: Regular rate and rhythm. No murmur heard. Normal peripheral pulses. ABDOMEN: Soft, nondistended, normal active bowel sounds. Tender to palpation throughout the mid abdomen, without guarding EXTREMITIES: Normal range of motion. No edema. SKIN: Warm, dry, no rash. NEURO: No focal deficits. Alert and oriented x3. PSYCH: Normal mood and affect <Barbra Fuller PA-C - Last Filed: 08/28/24 14:50> Course Course Emergency Course: Patient resting comfortably. Care taken over by Dr. Bain <Barbra Fuller PA-C - Last Filed: 08/28/24 14:50> BRANCH SERVICE LEADER/PA Physician Supervision For this patient encounter, I reviewed the BRANCH SERVICE LEADER or PA documentation, treatment plan, and medical decision making; and I had [id number] time with this patient. <Tyler Bain MD - Last Filed: 08/28/24 05:18> Vital Signs Vital signs: Vital Signs Temperature 98.6 F 08/27/24 19:50 Pulse Rate 77 08/27/24 19:50 Respiratory Rate 16 08/27/24 19:50 Blood Pressure 146/62 H 08/27/24 19:50 Pulse Oximetry 96 08/27/24 19:50 Temperature 98.1 F 08/28/24 08:39 Pulse Rate 95 08/28/24 08:39 Respiratory Rate 20 08/28/24 08:39 Blood Pressure 158/78 H 08/28/24 08:39 Pulse Oximetry 100 08/28/24 08:39 <Barbra Fuller PA-C - Last Filed: 08/28/24 14:50> Vital Signs Temperature 98.6 F 08/27/24 19:50 Pulse Rate 77 08/27/24 19:50 Respiratory Rate 16 08/27/24 19:50 Blood Pressure 146/62 H 08/27/24 19:50 Pulse Oximetry 96 08/27/24 19:50 Temperature 98.1 F 08/28/24 08:39 Pulse Rate 95 08/28/24 08:39 Respiratory Rate 20 08/28/24 08:39 Blood Pressure 158/78 H 08/28/24 08:39 Pulse Oximetry 100 08/28/24 08:39 <Tyler Bain MD - Last Filed: 08/28/24 05:18> MDM - Abdominal Pain MDM Narrative Medical decision making narrative: Patient presents to the emergency department for abdominal pain, nausea and vomiting. She is afebrile and nontoxic appearing. Her vitals are stable. Cbc without leukocytosis. Metabolic panel and lipase without concerning findings. Urine without evidence of infection. CT abdomen/pelvis pending. Care taken over by Dr. Bain CT scan showed no acute abnormality there was diverticulosis without diverticulitis <Barbra uFller PA-C - Last Filed: 08/28/24 14:50> Patient presents to the emergency department for abdominal pain, nausea and vomiting. She is afebrile and nontoxic appearing. Her vitals are stable. Cbc without leukocytosis. Metabolic panel and lipase without concerning findings. Urine without evidence of infection. CT scan showed no acute abnormality there was diverticulosis without diverticulitis <Tyler Bain MD - Last Filed: 08/28/24 05:18> Differential Diagnosis Differential diagnosis: Likely abdominal pain, calculus of kidney, constipation, diverticulitis and gastroenteritis <Barbra Fuller PA-C - Last Filed: 08/28/24 14:50> Lab Data Attestation: I reviewed the patient's lab results. <Barbra Fuller PA-C - Last Filed: 08/28/24 14:50> Result diagrams: 08/27/24 23:30 08/27/24 23:30 <ALCON Esteban Last Filed: 08/28/24 14:50> Labs: Lab Results 08/27/24 08/28/24 Range/Units 23:30 01:19 WBC 4.8 (4.5-10.0) K/mm3 RBC 4.79 (4.2-5.4) M/mm3 Hgb 13.9 (12.0-15.0) g/dL Hct 43.7 (37.0-47.0) % MCV 91.2 (80-100) fl MCH 29.0 (26-34) pg MCHC 31.8 L (32-36) g/dl RDW 14.7 H (11.5-14.5) % Plt Count 249 (150-375) k/mm3 MPV 10.1 (7.4-10.4) fl Immature Gran % (Auto) 0.2 (0-0.5) % Neut % (Auto) 62.9 (45.5-73.1) % Lymph % (Auto) 21.9 (18.3-44.2) % Villalba % (Auto) 9.5 H (2.6-8.5) % Eos % (Auto) 4.1 (0-4.4) % Baso % (Auto) 1.4 H (0.2-1.2) % Lymph # (Auto) 1.06 (0.9-3.2) K/mm3 [place] # (Auto) 0.5 (0.1-0.6) K/mm3 Eos # (Auto) 0.2 (0-0.3) K/mm3 Baso # (Auto) 0.1 (0.0-0.1) K/mm3 Abs Immat Gran (auto) 0.01 (0.00-0.031) K/mm3 Absolute Neuts (auto) 3.0 (1.3-6.7) K/mm3 Absolute Nucleated RBC 0.000 (0.0-0.012) K/mm3 Nucleated RBC % 0.0 (0.0-0.2) % Sodium 137 (137-145) mmol/L Potassium 4.1 (3.4-5.0) mmol/L Chloride 101 (98-107) mmol/L Carbon Dioxide 33 H (22-30) mmol/L Anion Gap 3 L (4-12) mmol/L BUN 8 (7-17) mg/dL Creatinine 0.60 L (0.7-1.0) mg/dL Estim Creat Clear Calc 53 ml/min Estimated GFR > 60 (59 - ) Glucose 104 (65-110) mg/dL Calcium 9.7 (8.4-10.2) mg/dL Total Bilirubin 0.7 (0.2-1.3) mg/dL AST 34 (14-36) U/L ALT 29 (6-35) U/L Alkaline Phosphatase 65 (38-126) U/L Total Protein 7.0 (6.3-8.2) g/dL Albumin 4.1 (3.5-5.1) g/dL Lipase 209 (23-300) U/L Urine Color Yellow (Yellow) Urine Appearance Clear (Clear) Urine pH 5.5 (5.0-9.0) Ur Specific [place] 1.040 H (1.001-1.035) Urine Protein Negative (Negative) mg/dL Urine Glucose (UA) Negative (Negative) mg/dL Urine Ketones Negative (Negative) mg/dL Ur Blood (Man) Negative (Negative) Urine Nitrate Negative (Negative) Urine Bilirubin Negative (Negative) Urine Urobilinogen 1.0 (<2.0) mg/dL Leukocyte Esterase Rfl Negative (Negative) TATO/UL Influenza A (RT-PCR) Negative (Negative) Influenza B (RT-PCR) Negative (Negative) RSV (RT-PCR) Negative (Negative) SARS-CoV-2 RNA (RT-PCR) Negative (Negative) <Barbra Fuller PA-C - Last Filed: 08/28/24 14:50> Lab Results 08/27/24 08/28/24 Range/Units 23:30 01:19 WBC 4.8 (4.5-10.0) K/mm3 RBC 4.79 (4.2-5.4) M/mm3 Hgb 13.9 (12.0-15.0) g/dL Hct 43.7 (37.0-47.0) % MCV 91.2 (80-100) fl MCH 29.0 (26-34) pg MCHC 31.8 L (32-36) g/dl RDW 14.7 H (11.5-14.5) % Plt Count 249 (150-375) k/mm3 MPV 10.1 (7.4-10.4) fl Immature Gran % (Auto) 0.2 (0-0.5) % Neut % (Auto) 62.9 (45.5-73.1) % Lymph % (Auto) 21.9 (18.3-44.2) % [place] % (Auto) 9.5 H (2.6-8.5) % Eos % (Auto) 4.1 (0-4.4) % Baso % (Auto) 1.4 H (0.2-1.2) % Lymph # (Auto) 1.06 (0.9-3.2) K/mm3 [place] # (Auto) 0.5 (0.1-0.6) K/mm3 Eos # (Auto) 0.2 (0-0.3) K/mm3 Baso # (Auto) 0.1 (0.0-0.1) K/mm3 Abs Immat Gran (auto) 0.01 (0.00-0.031) K/mm3 Absolute Neuts (auto) 3.0 (1.3-6.7) K/mm3 Absolute Nucleated RBC 0.000 (0.0-0.012) K/mm3 Nucleated RBC % 0.0 (0.0-0.2) % Sodium 137 (137-145) mmol/L Potassium 4.1 (3.4-5.0) mmol/L Chloride 101 (98-107) mmol/L Carbon Dioxide 33 H (22-30) mmol/L Anion Gap 3 L (4-12) mmol/L BUN 8 (7-17) mg/dL Creatinine 0.60 L (0.7-1.0) mg/dL Estim Creat Clear Calc 53 ml/min Estimated GFR > 60 (59 - ) Glucose 104 (65-110) mg/dL Calcium 9.7 (8.4-10.2) mg/dL Total Bilirubin 0.7 (0.2-1.3) mg/dL AST 34 (14-36) U/L ALT 29 (6-35) U/L Alkaline Phosphatase 65 (38-126) U/L Total Protein 7.0 (6.3-8.2) g/dL Albumin 4.1 (3.5-5.1) g/dL Lipase 209 (23-300) U/L Urine Color Yellow (Yellow) Urine Appearance Clear (Clear) Urine pH 5.5 (5.0-9.0) Ur Specific [place] 1.040 H (1.001-1.035) Urine Protein Negative (Negative) mg/dL Urine Glucose (UA) Negative (Negative) mg/dL Urine Ketones Negative (Negative) mg/dL Ur Blood (Man) Negative (Negative) Urine Nitrate Negative (Negative) Urine Bilirubin Negative (Negative) Urine Urobilinogen 1.0 (<2.0) mg/dL Leukocyte Esterase Rfl Negative (Negative) TATO/UL Influenza A (RT-PCR) Negative (Negative) Influenza B (RT-PCR) Negative (Negative) RSV (RT-PCR) Negative (Negative) SARS-CoV-2 RNA (RT-PCR) Negative (Negative) <Tyler Bain MD - Last Filed: 08/28/24 05:18> Imaging Data Radiologist's impression: ITS Impressions Abdomen/Pelvis CT 08/28/24 05:52 Impression: No acute abnormalities seen. Small hiatal hernia. Diffuse hepatic steatosis. <Barbra Fuller PA-C - Last Filed: 08/28/24 14:50> ITS Impressions Abdomen/Pelvis CT 08/28/24 05:52 Impression: No acute abnormalities seen. Small hiatal hernia. Diffuse hepatic steatosis. <Tyler Bain MD - Last Filed: 08/28/24 05:18> Critical Care Time Critical Care Time Critical Care Time: No <Barbra Fuller PA-C - Last Filed: 08/28/24 14:50> Discharge Plan Discharge Clinical Impression: Abdominal pain Qualifiers: Abdominal location: generalized Qualified Code(s): R10.84 - Generalized abdominal pain <Barbra Fuller PA-C - Last Filed: 08/28/24 14:50> Patient Disposition: NH Snf/Asst Living <Barbra Fuller PA-C - Last Filed: 08/28/24 14:50> Condition: Stable <Barbra Fuller PA-C - Last Filed: 08/28/24 14:50> Instructions: Abdominal Pain (ED) <Barbra Fuller PA-C - Last Filed: 08/28/24 14:50> Additional Instructions: Return to the ER if you experience fever, abdominal pain with nausea and vomiting, you are unable to keep down liquids or solids, pain or burning with urination, blood in the urine or any other symptoms that are concerning to you Small, frequent meals. [place] diet. Remain well hydrated Follow up with primary care doctor <Barbra Fuller PA-C - Last Filed: 08/28/24 14:50> Prescriptions: No Action acetaminophen 500 mg tablet 500 mg PO Q6H PRN buspirone 5 mg tablet 5 mg PO TID All Day Allergy (cetirizine) 10 mg capsule 10 mg PO DAILY PRN docusate sodium 100 mg capsule 100 mg PO BID fluticasone propionate [Flonase Allergy Relief] 50 mcg/actuation spray,suspension 1 spray intranasal DAILY Rx Instructions: administer into each nostril guaifenesin 400 mg tablet 400 mg PO QID ipratropium-albuterol 0.5 mg-3 mg(2.5 mg base)/3 mL solution for nebulization 3 ml inhalation Q6H PRN metoprolol tartrate 50 mg tablet 50 mg PO BID omeprazole 20 mg capsule,delayed release(DR/EC) 20 mg PO DAILY ondansetron 4 mg tablet,disintegrating 4 mg PO Q8H quetiapine [Seroquel] 25 mg tablet 25 mg PO QHS sertraline 25 mg tablet 25 mg PO DAILY simvastatin 40 mg tablet 40 mg PO DAILY tramadol 50 mg tablet 50 mg PO Q6H PRN cholecalciferol (vitamin D3) 125 mcg (5,000 unit) tablet 125 mcg PO DAILY albuterol sulfate [Ventolin HFA] 90 mcg/actuation HFA aerosol inhaler 2 inh inhalation Q4H PRN (Reason: shortness of breath or wheezing) Qty: 8.5 3RF Breztri Aerosphere 160-9-4.8 mcg/actuation HFA aerosol inhaler 2 inh inhalation BID Qty: 10.7 5RF Rx Instructions: Rinse mouth and spit after each use. Use with spacer. prednisone 10 mg tablet See Rx Instructions PO DAILY Qty: 34 0RF Rx Instructions: 4 tabs daily x 4 days; then 3 tabs daily x 3 days, then 2 tabs daily x 3 days, then 1 tab daily x 3 days. benzonatate 200 mg capsule 200 mg PO TID PRN (Reason: cough) Qty: 21 0RF amoxicillin-pot clavulanate 875-125 mg tablet 1 tablet PO Q12H 5 Days Qty: 10 0RF <Barbra Fuller PA-C - Last Filed: 08/28/24 14:50> Follow-up/Referrals: Jose Guzman MD [Primary Care Provider] - <Barbra Fuller PA-C - Last Filed: 08/28/24 14:50> Stand Alone Forms: Senior Living Discharge <Barbra Fuller PA-C - Last Filed: 08/28/24 14:50> Time of Disposition: 05:18 <Barbra Fuller PA-C - Last Filed: 08/28/24 14:50> 05:18 <Tyler Bain MD - Last Filed: 08/28/24 05:18>
[2024-08-27 23:55] LABS: Alanine Aminotransferase 29 U/L (6-35); Albumin Level 4.1 g/dL (3.5-5.1); Alkaline Phosphatase 65 U/L (38-126); Anion Gap 3 mmol/L (4-12); Aspartate Amino Transferase 34 U/L (14-36); Bilirubin,Total 0.7 mg/dL (0.2-1.3); Blood Urea Nitrogen 8 mg/dL (7-17); Calcium 9.7 mg/dL (8.4-10.2); Carbon Dioxide 33 mmol/L (22-30); Chloride 101 mmol/L (98-107); Estimated CRCL calculation 53 ml/min; Estimated Glomerular Filt Rate > 60; Glucose 104 mg/dL (65-110); Lipase 209 U/L (23-300); Potassium 4.1 mmol/L (3.4-5.0); Sodium 137 mmol/L (137-145)
[2024-08-28] VITALS (7 sets, daily range): BP systolic 107–158; BP diastolic 36–94; PULSE 77–95; RESP 15–20; TEMP 36.7; O2SAT 95–100
[2024-08-28] MEDS: ONDANSETRON INJ 4 MG/2 ML VIAL IV PUSH (01:13)
[2024-08-28] MEDS: IPRATROPIUM 0.5 MG/ALBUTEROL SULFATE 2.5 MG AMPUL.NEB 3 ML INHALATION (01:19)
[2024-08-28 01:34] LABS: Add Urine Microscopic? NO; Appearance Urine Clear (Clear); Bilirubin Urine Negative (Negative); Blood Urine Negative (Negative); Color Urine Yellow (Yellow); Glucose Urine UA Negative (Negative); Ketones Urine Negative (Negative); Leukocyte Esterase Ur Negative LEU/UL (Negative); Nitrate Urine Negative (Negative); Protein Urine Negative (Negative); pH Urine 5.5 (5.0-9.0)
[2024-08-28 02:08] LABS: Influenza A QL RT-PCR Negative (Negative); Influenza B QL RT-PCR Negative (Negative); RSV RNA, RT-PCR Negative (Negative); SARS-CoV-2 RNA PCR Negative (Negative)
--- NOTE | 2024-08-28 08:40 | PC.NURSE ---
standard reg diet breakfast tray ordered
== END 2024-08-28 10:29 ==
PROVIDERS: Emergency Medicine; Emergency Provider Physician Assistant; PCP Family Medicine Adolescent Medicine
DX: R10.84 Generalized abdominal pain (principal); Z20.822 Contact with and (suspected) exposure to COVID-19; I25.10 Atherosclerotic heart disease of native coronary artery without angina pectoris; E78.5 Hyperlipidemia, unspecified; K21.9 Gastro-esophageal reflux disease without esophagitis; M19.031 Primary osteoarthritis, right wrist; Z79.899 Other long term (current) drug therapy; K76.0 Fatty (change of) liver, not elsewhere classified; K44.9 Diaphragmatic hernia without obstruction or gangrene
CPT/HCPCS: 36415; 74177; 80053; 81003; 83690; 85025; 87637; 94640; 96374; 99284; J2405; Q9967

== ENCOUNTER 2025-03-11 23:23 | Emergency (ER) | payer MEDICARE, MEDICAID, SELFPAY ==
[2025-03-11 23:28] VITALS: BP 147/57; PULSE 73; RESP 16; TEMP 36.7; O2SAT 98
[2025-03-12 00:06] LABS: Alanine Aminotransferase 20 U/L (6-35); Albumin Level 4.2 g/dL (3.5-5.1); Alkaline Phosphatase 47 U/L (38-126); Anion Gap 9 mmol/L (4-12); Aspartate Amino Transferase 29 U/L (14-36); Bilirubin,Total 0.6 mg/dL (0.2-1.3); Blood Urea Nitrogen 8 mg/dL (7-17); Calcium 10.1 mg/dL (8.4-10.2); Carbon Dioxide 26 mmol/L (22-30); Chloride 101 mmol/L (98-107); Estimated CRCL calculation 53 ml/min; Estimated Glomerular Filt Rate > 60; Glucose 124 mg/dL (65-110); Lipase 176 U/L (23-300); Potassium 4.4 mmol/L (3.4-5.0); Sodium 136 mmol/L (137-145); Total Protein 7.1 g/dL (6.3-8.2)
[2025-03-12 00:20] LABS: Basophils Absolute Auto 0.1 K/mm3 (0.0-0.1); Eosinophils Absolute Auto 0.2 K/mm3 (0-0.3); Eosinophils Percent Auto 4.5 % (0-4.4); Hematocrit 39.5 % (37.0-47.0); Immature Granulocyte Absolute 0.02 K/mm3 (0.00-0.031); Immature Granulocyte Percent A 0.4 % (0-0.5); Lymphocytes Absolute Auto 0.88 K/mm3 (0.9-3.2); Lymphocytes Percent Auto 17.1 % (18.3-44.2); Mean Corpuscular HGB Conc 32.9 g/dl (32-36); Mean Corpuscular Hemoglobin 31.6 pg (26-34); Mean Corpuscular Volume 96.1 fl (80-100); Mean Platelet Volume 10.2 fl (7.4-10.4); Monocytes Absolute Auto 0.5 K/mm3 (0.1-0.6); Monocytes Percent Auto 8.9 % (2.6-8.5); Neutrophils Absolute Auto 3.5 K/mm3 (1.3-6.7); Neutrophils Percent Auto 68.1 % (45.5-73.1); Platelet Count Result 276 k/mm3 (150-375); Red Blood Count 4.11 M/mm3 (4.2-5.4); Red Cell Distribution Width 13.9 % (11.5-14.5); White Blood Count 5.2 K/mm3 (4.5-10.0)
--- OUTSIDE RECORDS SUMMARY | 2025-03-12 01:03 | XMS_ITS | Clinical Summary ---
Author Organization [facility] Address [address] [place] [address] Care Team Providers Care Email Producer Name Role Phone Jose Guzman MD Primary Care Prov ider Allergies Active Allergy Reactions Criticality Noted Date Comments Etodolac Hives Medium 08/04/2013 Hives Medications omeprazole 20 mg tablet,delayed release (/EC) take 1 Tablet by Oral route every day 0 0 06/11/2015 Active TiZANidine (ZANAFLEX) 4 mg capsule take 1 capsule by oral route 3 times every day 0 0 06/11/2015 Active metoprolol (LOPRESSOR) 50 mg tablet take 1 Tablet by oral route 2 times every day with meals 60 5 08/04/2015 Active simvastatin (ZOCOR) 40 mg tablet TAKE 1 TABLET BY MOUTH EVERY EVENING 30 0 06/23/2016 Active indomethacin (INDOCIN) 50 mg capsule take 1 capsule by oral route 3 times every day with food 0 0 06/11/2015 Active calcium carbonate-vitam in D3 (CALCIUM 600 + D,3,) 1500 mg (600 mg elemental) -200 units per tablet Take 2 tablets by mouth daily Active solifenacin succinate (VESICARE ORAL) Rx: VESIcare A ctive ipratropium (ATROVENT) 42 mcg (0.06 %) nasal spray 11/12/2018 Active traZODone (DESYREL) 150 mg tablet 01/18/2019 Active albuterol HFA (PROVENTIL HFA,VENTOLIN HFA,PROAIR HFA) 90 mcg/actuation inhaler 08/06/2019 Active oxybutynin (DITROPAN) 5 mg tablet 09/27/2019 Active traMADoL (ULTRAM) 50 mg tabletIndicatio ns:Pes anserinus bursitis of left knee Take 1 tablet every 6 hours as needed for pain. 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 02/10/2019 Chronic left-sided low back pain with left-sided sciatica 02/10/2019 Myalgia 02/10/2019 Surgical History Surgery Date Site/Laterality Comments ROTATOR CUFF REPAIR Medical History Medical History Date Comments Osteoarthritis Family History Medical History Relation Name Comments Arthritis Other Cancer Other Stroke Other Relation Name Status Comments Other Social History Tobacco Use Types Packs/Day Years Used Date Smoking Tobacco: Former Alcohol Use Standard Drinks/Week Comments Never 0 (1 standard drink = 0.6 oz pur e alcohol) AUDIT-C Answer Date Recorded Frequency of Alcohol Consumption Never 10/13/2019 Average Number of Drinks Not on file 020 Frequency of Binge Drinking Not on file 09/25 Personal Safety Answer Date Recorded Getting School Help Needed Not on file 11/23 Comments Unknown Sex and Gender Information Value Date Recorded Sex Assigned at Not on file 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 Gender Identity Not on file Sexual Orientation Not on file Obstetrics History Last Filed Vital Signs Vital Sign Reading Time Taken Comments Blood Pressure 120/64 01/04/2016 10:57 AM CDT Pulse 70 01/04/2016 10:57 AM CDT Temperature 36.9 C (98.5 F) 08/04/2013 1:39 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 Respiratory Rate - - Oxygen Saturation 95% 08/04/2013 1:39 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
--- OUTSIDE RECORDS SUMMARY | 2025-03-12 01:03 | XMS_ITS | Continuity of Care Document ---
Author Organization [facility] [place] [address] [place] [address] Phone Care Team Providers Care Machine Bobbin Winder Name Role Phone Marcos Thibodeaux Unavailable Unavailable Procedures Procedure Date Post-op Follow-up Visit Refraction Post-op Follow-up Visit Complex Extracapsular Cat Rem 6 Advance Directives Directive Yes / No Effective Date File Name No Information Encounters Encounter Description Practice Location Reason(s) For Visit Diagnoses Date Provider Providers Copied on Encounter [facility], [address], [place], [place], [id number], [place] tel:[phone] [facility] No Information 7 Carlos Eduardo Rodríguez. [address] [place], [place] [address]ate [address], [place], [place], [facility], [place]. tel:[phone] Referring Provider: Carlin Contreras, Allison [employer] [address], [place], [place], [facility]. tel:[phone] [facility], [address], [place], [place], [id number], tel:[phone] [facility] No Information 6 Carlos Eduardo Rod[facility]guez. [address] [facility] [address], [place], [address], [place]. tel:[phone] Referring Provider: Carlin Contreras, [employer] [address], [place], [address]. tel:[phone] [facility], [address], [place], [place], [id number], [place] tel:[phone] [facility] No Information [address] Carlos Eduardo Rodríguez. [address], [place], [address], [place]. tel:[phone] Family History Family Member Type Diagnosis Age At Onset No Information Payers Payer name Insurance type Covered constitution party ID Authoriza tion(s) No Information Social History Type Description Quantity Date Captured Comments Sex Female Smoking Status No Information Chief Complaint And Reason For Visit No Information Reason For Referral Reason For Referral No Information History Of Present Illness Encounter Date Complaint History Of Prese nt Illness No Information Functional Status Date Functional Assessmen t No Information Instructions Date Instruction Additional Infor mation No Information Assessments Type Assessment Date No Information Patient Care Teams Name Effective Dates (start - stop) Status Members No Information
--- OUTSIDE RECORDS SUMMARY | 2025-03-12 01:03 | XMS_ITS | Referral Summary ---
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 AETNA MEDICARE Advance Directives For more information, please contact: [phone] Documents on File Type Date Recorded Patient Director Of Content And Programming Expl anation ADVANCE DIRECTIVE 10/22/2013 12:00 AM VIKASH PINTO WILL Care Teams Harpooner Relationship Specialty Start Date End Date Jose Guzman MD PCP - General Family Medicine 04/07/19
--- OUTSIDE RECORDS SUMMARY | 2025-03-12 01:03 | XMS_ITS | Clinical Summary ---
Author Organization [facility] Address [address] [place] [address] Care Team Providers Care Tunnel Elastic Operator Lockstitch Name Role Phone Jose Guzman MD Primary Care Provider + Source Comments [facility],non-owned Affiliates and Associated Physician Practices is amultiple site organization consisting of ambulatory clinics and hospital sitesin [place], [place], [place] and [place]. This disclosure is being madepursuant to the Care Everywhere program and may not contain all information available regarding this patient. Last updated 18.[facility] [employer] Allergies Active Allergy Reactions Criticality Noted Date Comments Etodolac Rash Medium 06/08/2021 Medications * Be aware that medications may not be up to date on this document. Alwaysverify current medications with the patient. albuterol HFA (PROVENTIL;NKECHI TOLIN;PROAIR) 108 (90 Base) MCG/ACT inhaler Inhale 2 puffs by mouth every 4 hours as needed 1 Active metoprolol tartrate (LOPRESSOR) 50 MG tablet Take 50 mg by mouth 2 times daily 1 Active oxybutynin (DITROPAN) 5 MG tablet Take 10 mg by mouth at bedtime 1 Active simvastatin (ZOCOR) 40 MG tablet Take 40 mg by mouth every evening 1 Active polyethylene glycol 3350 (MIRALAX) 17 g packet Take 17 (seventeen) g by mouth once daily 1 Active senna-docusate (SENOKOT-S) 8.6-50 MG tablet Take 1 (one) tablet by mouth once daily as needed for Constipation 1 Active melatonin 5 MG tablet Take 1 (one) tablet by mouth at bedtime 1 Active famotidine (PEPCID) 20 MG tablet Take 1 (one) tablet by mouth 2 times daily 1 Active busPIRone (BUSPAR) 7.5 MG tablet 2 Active mirtazapine (REMERON) 7.5 MG tablet 2 Active QUEtiapine (SEROQUEL) 25 MG tablet 2 Active sertraline (ZOLOFT) 25 MG tablet 2 Active Cholecalcifero l (VITAMIN D) 125 MCG (5000 UT) CAPS Active Loperamide HCl (IMODIUM A-D PO) Active aspirin (ASPIRIN) 81 MG chew tablet Take 1 (one) tablet by mouth 2 times daily 60 tablet 2 Active celecoxib (CELEBREX) 100 MG capsule Take 1 (one) capsule by mouth 2 times daily 60 capsule 2 Active docusate sodium (COLACE) 100 MG capsule Take 1 (one) capsule by mouth 2 times daily as needed for Constipation 30 capsule 2 Active HYDROcodone-ac etaminophen (NORCO) 5-325 MG tablet Take 1 (one) tablet by mouth every 4 hours as needed for Pain 28 tablet 2 Active acetaminophen (TYLENOL) 500 MG tablet Take 1 (one) tablet by mouth every 6 hours as needed for Fever or Pain Maximum allowable Acetaminophen amount = 4 Grams (4000 mg) / 24 hours. 40 tablet 2 Active Active Problems Problem Noted Date Diagnosed Date Fall 06/08/2021 Periprosthetic fracture arou nd internal prosthetic right knee joint Family History Medical History Relation Name Comments CVA Other Cancer Other Relation Name Status Comments Other Social History Tobacco Use Types Packs/Day Years Used Date Smoking Tobacco: Never Smokeless Tobacco: Never Alcohol Use Standard Drinks/Week Comments Never 0 (1 standard drink = 0.6 oz pur e alcohol) Comments No Sex and Gender Information Value Date Recorded Sex Assigned at Not on file Legal Sex Female 4:34 PM CDT Gender Identity Not on file Sexual Orientation Not on file Last Filed Vital Signs Vital Sign Reading Time Taken Comments Blood Pressure 116/69 04/06/2022 3:26 PM CDT Pulse 83 04/06/2022 3:26 PM CDT Temperature 35.3 C (95.6 F) 04/06/2022 2:27 PM CDT Respiratory Rate 14 04/06/2022 3:26 PM CDT Oxygen Saturation 95% 04/06/2022 3:26 PM CDT Inhaled Oxygen Concentration - - Weight 68 kg (150 lb) 04/04/2022 2:41 PM CDT Height 152.4 cm (5') 04/04/2022 2:41 PM CDT Body Mass Index 29.29 04/04/2022 2:41 PM CDT Plan of Treatment Health Maintenance Due Date Last Done Comments BONE DENSITY TESTING 1935 MEDICARE AWV 12 MONTHS 1935 DTAP/TDAP/TD VACCINES (1 - Tdap) 1956 PNEUMOCOCCAL VACCINE 50+ (1 of 1 - PCV) 1987 ZOSTER VACCINE (1 of 2) 1987 Respiratory Syncytial Virus (RSV) Vaccine Pt: or over 60 yrs (1 - 1-dose 75+ series) 2012 COVID-19 VACCINE ( - 2023-2 5 season) 2024 DEPRESSION SCREENING 09/24/2024 INFLUENZA VACCINE (Season Ended) 2025 HEPATITIS B VACCINE Aged Out No longe r eligible based on patient's age to complete this topic HIB VACCINE Aged Out No longer eligi ble based on patient's age to complete this topic HPV VACCINE Aged Out No longer eligi ble based on patient's age to complete this topic MENINGOCOCCAL (Group B) VACC INE SHARED DECISION-MAKING Aged Out No longer eligibl e based on patient's age to complete this topic MENINGOCOCCAL GROUPS A/C/Y/W VACCINE Aged Out No longer eligible b ased on patient's age to complete this topic Medical Devices Implanted Type Area Outpatient Scheduler Device Identifier Shelf Expiration Date Model / Serial / Lot Nail Im 10mm 38cm Trgn Mt-Nail Fem Rtrgd Implanted:Qty: 1 on 06/09/2021 by Jose Aldana MD at [facility] Right: Femur [employer] 07/27/2028 [id number] / / [id number] Screw 5mm 80mm Lopro Intnl Hex Fem Trgn Implanted:Qty: 1 on 06/09/2021 by Jose Aldana MD at [facility] Right: Femur [employer] 07/24/2030 [id number] / / [id number] Screw 5mm 72mm Lopro Intnl Hex Fem Trgn Implanted:Qty: 1 on 06/09/2021 by Jose Aldana MD at [facility] Right: Femur [employer] 10/25/2022 [id number] / / [id number] Trigen L-P Screw 5.0 Mm X 75 Mm [id number] Implanted:Qty: 1 on 06/09/2021 by Jose Aldana MD at [facility] Right: Femur [employer] 02/06/2030 [id number] / / [id number] Screw 5mm 42.5mm Lopro Intnl Hex Fem Implanted:Qty: 1 on 06/09/2021 by Jose Aldana MD at [facility] Right: Femur [employer] 12/24/2023 [id number] / / [id number] Explanted Type Area Outpatient Scheduler Device Identifier Shelf Expiration Date Model / Serial / Lot Screw 5mm 52.5mm Lopro Intnl Hex Fem Explanted:Qty: 1 on 06/09/2021 at [facility] Right: Femur [employer] 01/07/2028 [id number] / / [id number] Screw 5mm 60mm Lopro Intnl Hex Fem Trgn Explanted:Qty: 1 on 06/09/2021 at [facility] Right: Femur [employer] 09/29/2029 [id number] / / [id number] Screw 5mm 50mm Lopro Intnl Hex Fem Trgn Explanted:Qty: 1 on 06/09/2021 at [facility] Right: Femur [employer] 07/28/2029 [id number] / / [id number] Screw 5mm 80mm Lopro Intnl Hex Fem Trgn Explanted:Qty: 1 on 06/09/2021 at [facility] Right: Femur [employer] 02/08/2030 [id number] / / [id number] Insurance MEDICARE ANTHEM ANTHEM MEDICAID MEDICARE MEDICAID - OUT OF STATE Advance Directives Documents on File Type Date Recorded Patient Federal Judge Expl anation Adv Directive/Living Will/POA 04/10/2022 10:48 PM * Full Code (Latest Code Status on File) Date Activated Date Inactivated Comments 04/04/2022 2:55 PM 04/06/2022 5:35 PM * Full Code Date Activated Date Inactivated Comments 06/08/2021 7:19 PM 06/15/2021 5:25 PM Care Teams Tunnel Elastic Operator Lockstitch Relationship Specialty Start Date End Date Jose Guzman MD [address] [address] PCP - General Family Medicine 06/08/21
--- OUTSIDE RECORDS SUMMARY | 2025-03-12 01:03 | XMS_ITS | Clinical Summary ---
Author Organization [facility] Address [address] [place] [id number] Care Team Providers Care Adjunct Faculty For Medical Terminology Name Role Phone Unavailable Primary Care Provider Unavailabl e Social History Tobacco Use Types Packs/Day Years Used Date Smoking Tobacco: Former Comments Unknown Sex and Gender Information Value Date Recorded Sex Assigned at Not on file Legal Sex Female 9:16 PM CDT Gender Identity Not on file Sexual Orientation Not on file Last Filed Vital Signs Vital Sign Reading Time Taken Comments Blood Pressure 141/68 07/30/2014 10:01 AM SLIDE DEVELOPER Pulse 58 07/30/2014 10:01 AM SLIDE DEVELOPER Temperature - - Respiratory Rate - - Oxygen Saturation - - Inhaled Oxygen Concentration - - Weight 72.1 kg (159 lb) 07/30/2014 10:01 AM SLIDE DEVELOPER Height 160 cm (5' 3) 07/30/2014 10:01 AM SLIDE DEVELOPER Body Mass Index 28.17 07/30/2014 10:01 AM SLIDE DEVELOPER Plan of Treatment Health Maintenance Due Date Last Done Comments DTaP, Tdap and Td Vaccines ( 1 - Tdap) 1956 Pneumococcal Vaccine: 50+ Ye ars (1 of 1 - PCV) 1987 Zoster Vaccines (1 of 2) 1987 RSV Immunization or 60+ Years (1 - 1-dose 75+ series) 2012 COVID-19 Vaccine ( - 2023-2 5 season) 2024 Meningococcal B Vaccine Aged Out No l onger eligible based on patient's age to complete this topic Meningococcal Vaccine Aged Out No elena kathleen eligible based on patient's age to complete this topic RSV Immunizations Under 20 Months Aged Out No longer eligible based on patient's age to complete this topic
--- NOTE | 2025-03-12 01:08 | ED_ITS ---
HPI - General Adult General Chief complaint: Nausea/Vomiting/Diarrhea Stated complaint: brown emesis, distended abd Time Seen by Provider: 03/12/25 00:55 History of Present Illness HPI narrative: 89-year-old female with history of dementia presenting to the emergency department after having 2 vomiting episodes this morning. She states that she just did not like the food that she was being served today and it was not agreeing with her so she vomited it up. Denies any pain, abdominal distension, bloating, diarrhea constipation. EMS was called to transport the patient. Patient has no complaints at this time and denies any nauseousness or vomiting. No abdominal pain or distension, no fever, chills, back pain or chest pain. Patient is not sure why she was sent to the hospital. She has no complaints aside from chronic right-sided shoulder pain that was from a rotator cuff injury that has no plans for operations per her orthopedic doctor's note previously. There is a lidocaine patch currently applied to it. Denies any injuries or falls. She is otherwise well-appearing and not nauseous presently. Denies any urinary complaints. Related Data Home Medications ?Medication ?Instructions ?Recorded ?Confirmed ?Last Taken ?Type acetaminophen 500 mg tablet 500 mg PO Q6H PRN 11/23/23 02/03/25 Unknown History cetirizine 10 mg capsule (All Day 10 mg PO DAILY PRN 11/23/23 02/03/25 Unknown History Allergy (cetirizine)) cholecalciferol (vitamin D3) 125 125 mcg PO DAILY 11/23/23 02/03/25 Unknown History mcg (5,000 unit) tablet docusate sodium 100 mg capsule 100 mg PO BID 11/23/23 02/03/25 Unknown History metoprolol tartrate 50 mg tablet 50 mg PO BID 11/23/23 02/03/25 Unknown History ondansetron 4 mg disintegrating 4 mg PO Q8H 11/23/23 02/03/25 Unknown History tablet simvastatin 40 mg tablet 40 mg PO DAILY 11/23/23 02/03/25 Unknown History tramadol 50 mg tablet 50 mg PO Q6H PRN 11/23/23 02/03/25 Unknown History citalopram 10 mg tablet (Celexa) 10 mg PO DAILY 02/03/25 02/03/25 Unknown History famotidine 10 mg tablet 20 mg PO DAILY 02/03/25 02/03/25 Unknown History sennosides 8.6 mg-docusate sodium 1 tab-cap PO QHS 02/03/25 02/03/25 Unknown History 50 mg capsule (Senna Plus) suvorexant 5 mg tablet (Belsomra) 5 mg PO QHS 02/03/25 02/03/25 Unknown History Allergies Allergy/AdvReac Type Severity Reaction Status Date / Time etodolac Allergy Unknown RASH Verified 02/03/25 11:28 Review of Systems 2 Review of Systems: As reviewed above in HPI [facility] Past Medical History Medical History Urinary frequency Constipation Shortness of breath Wears glasses Vision changes Arthritis of wrist, right, degenerative Fracture of radius, distal, right, closed History of gastroesophageal reflux (GERD) History of hyperlipidemia History of coronary artery disease Social History Social History (Updated 02/03/25 @ 13:12 by Ilene Dotson CMA) Smoking status: Never smoker Alcohol intake: never Substance use: never Exam 2 Narrative: GENERAL: Elderly, not any acute distress, well appearing overall. HEAD: [Normocephalic, atraumatic.] EYES: [PERRLA and EOMI.] ENT: Nares clear, no rhinorrhea or epistaxis. Mucous membranes moist. NECK: Supple. CHEST: [Clear to auscultation. No respiratory distress.] HEART: [Regular rate and rhythm]. No murmur heard. [Normal peripheral pulses.] ABDOMEN: Soft nontender nondistended abdomen, no peritonitis, no rigidity or guarding EXTREMITIES: Normal range of motion. [No edema.] SKIN: Warm, dry, no rash. NEURO: [No focal deficits]. Alert and oriented x2 which is her baseline PSYCH: [Normal mood and affect.] Course Vital Signs Vital signs: Vital Signs Temperature 36.7 C 03/11/25 23:28 Pulse Rate 73 03/11/25 23:28 Respiratory Rate 16 03/11/25 23:28 Blood Pressure 147/57 H 03/11/25 23:28 Pulse Oximetry 98 03/11/25 23:28 Oxygen Delivery Room Air 03/11/25 23:28 Temperature 36.7 C 03/11/25 23:28 Pulse Rate 99 03/12/25 01:28 Respiratory Rate 16 03/12/25 01:28 Blood Pressure 138/88 03/12/25 01:28 Pulse Oximetry 100 03/12/25 01:28 Oxygen Delivery Room Air 03/11/25 23:28 Medical Decision Making MDM Narrative Medical decision making narrative: 89-year-old female with history of dementia presenting to the emergency department after having 2 vomiting episodes this morning. She states that she just did not like the food that she was being served today and it was not agreeing with her so she vomited it up. Denies any pain, abdominal distension, bloating, diarrhea constipation. EMS was called to transport the patient. Patient has no complaints at this time and denies any nauseousness or vomiting. No abdominal pain or distension, no fever, chills, back pain or chest pain. Patient is not sure why she was sent to the hospital. She has no complaints aside from chronic right-sided shoulder pain that was from a rotator cuff injury that has no plans for operations per her orthopedic doctor's note previously. There is a lidocaine patch currently applied to it. Denies any injuries or falls. She is otherwise well-appearing and not nauseous presently. Denies any urinary complaints. Patient's vital signs are reassuring and she has a benign examination with a soft nondistended nontender abdomen. No nausea or vomiting while here in the emergency department. Basic laboratory studies were obtained to assess for any electrolyte imbalances, signs of infection or anemia. Patient placed on baggage porter and pulse oximetry while workup underway. Patient is asymptomatic at this time and no medications administered. Workup shows no leukocytosis or anemia. Normal platelet count. Electrolytes are unremarkable. Normal creatinine, normal glucose and LFTs. Negative lipase. Patient has been evaluated here for several hours and remains without any complaints or any vomiting. She can safely be discharged back to her [facility] facility at this time. Ambulance transportation services arranged given her dementia. Medical Records Medical records reviewed: Yes I reviewed the external patient's medical records. Vital Signs Vital Signs: Vital Signs Temperature 36.7 C 03/11/25 23:28 Pulse Rate 73 03/11/25 23:28 Respiratory Rate 16 03/11/25 23:28 Blood Pressure 147/57 H 03/11/25 23:28 Pulse Oximetry 98 03/11/25 23:28 Oxygen Delivery Room Air 03/11/25 23:28 Temperature 36.7 C 03/11/25 23:28 Pulse Rate 99 03/12/25 01:28 Respiratory Rate 16 03/12/25 01:28 Blood Pressure 138/88 03/12/25 01:28 Pulse Oximetry 100 03/12/25 01:28 Oxygen Delivery Room Air 03/11/25 23:28 Lab Data Lab results reviewed: Yes I reviewed the patient's lab results. 03/11/25 23:43 03/11/25 23:43 Labs: Lab Results 03/11/25 Range/Units 23:43 WBC 5.2 (4.5-10.0) K/mm3 RBC 4.11 L (4.2-5.4) M/mm3 Hgb 13.0 (12.0-15.0) g/dL Hct 39.5 (37.0-47.0) % MCV 96.1 (80-100) fl MCH 31.6 (26-34) pg MCHC 32.9 (32-36) g/dl RDW 13.9 (11.5-14.5) % Plt Count 276 (150-375) k/mm3 MPV 10.2 (7.4-10.4) fl Immature Gran % (Auto) 0.4 (0-0.5) % Neut % (Auto) 68.1 (45.5-73.1) % Lymph % (Auto) 17.1 L (18.3-44.2) % [place] % (Auto) 8.9 H (2.6-8.5) % Eos % (Auto) 4.5 H (0-4.4) % Baso % (Auto) 1.0 (0.2-1.2) % Lymph # (Auto) 0.88 L (0.9-3.2) K/mm3 [place] # (Auto) 0.5 (0.1-0.6) K/mm3 Eos # (Auto) 0.2 (0-0.3) K/mm3 Baso # (Auto) 0.1 (0.0-0.1) K/mm3 Abs Immat Gran (auto) 0.02 (0.00-0.031) K/mm3 Absolute Neuts (auto) 3.5 (1.3-6.7) K/mm3 Absolute Nucleated RBC 0.000 (0.0-0.012) K/mm3 Nucleated RBC % 0.0 (0.0-0.2) % Sodium 136 L (137-145) mmol/L Potassium 4.4 (3.4-5.0) mmol/L Chloride 101 (98-107) mmol/L Carbon Dioxide 26 (22-30) mmol/L Anion Gap 9 (4-12) mmol/L BUN 8 (7-17) mg/dL Creatinine 0.64 L (0.7-1.0) mg/dL Estim Creat Clear Calc 53 ml/min Estimated GFR > 60 (59 - ) Glucose 124 H (65-110) mg/dL Calcium 10.1 (8.4-10.2) mg/dL Total Bilirubin 0.6 (0.2-1.3) mg/dL AST 29 (14-36) U/L ALT 20 (6-35) U/L Alkaline Phosphatase 47 (38-126) U/L Total Protein 7.1 (6.3-8.2) g/dL Albumin 4.2 (3.5-5.1) g/dL Lipase 176 (23-300) U/L Discharge Plan Discharge Clinical Impression: Vomiting Patient Disposition: NH Skilled Nursing/Asst Living Condition: Stable Instructions: Antibiotic Form, Dementia (ED) Patient Language: Armenian Prescriptions: No Action acetaminophen 500 mg tablet 500 mg PO Q6H PRN All Day Allergy (cetirizine) 10 mg capsule 10 mg PO DAILY PRN docusate sodium 100 mg capsule 100 mg PO BID metoprolol tartrate 50 mg tablet 50 mg PO BID ondansetron 4 mg tablet,disintegrating 4 mg PO Q8H simvastatin 40 mg tablet 40 mg PO DAILY tramadol 50 mg tablet 50 mg PO Q6H PRN cholecalciferol (vitamin D3) 125 mcg (5,000 unit) tablet 125 mcg PO DAILY Breztri Aerosphere 160-9-4.8 mcg/actuation HFA aerosol inhaler 2 inh inhalation BID Qty: 10.7 5RF Rx Instructions: Rinse mouth and spit after each use. Use with spacer. Belsomra 5 mg tablet 5 mg PO QHS citalopram [Celexa] 10 mg tablet 10 mg PO DAILY famotidine 10 mg tablet 20 mg PO DAILY Senna Plus 8.6-50 mg capsule 1 tab-cap PO QHS benzonatate 200 mg capsule 200 mg PO TID PRN (Reason: cough) Qty: 21 0RF Follow-up/Referrals: Jose Guzman MD [Primary Care Provider] - Stand Alone Forms: Halfway Discharge Time of Disposition: 01:20
[2025-03-12 01:28] VITALS: BP 138/88; PULSE 99; RESP 16; O2SAT 100
--- NOTE | 2025-03-12 04:06 | PC.NURSE ---
Pt moved from room 5 to room H2 and placed on bed alarm. ED charge made aware.
== END 2025-03-12 04:28 ==
PROVIDERS: Emergency Provider Student in an Organized Health Care Education/Training Program; PCP Family Medicine Adolescent Medicine
DX: R11.10 Vomiting, unspecified (principal); F03.90 Unspecified dementia, unspecified severity, without behavioral disturbance, psychotic disturbance, mood disturbance, and anxiety; E78.5 Hyperlipidemia, unspecified; I25.10 Atherosclerotic heart disease of native coronary artery without angina pectoris; K21.9 Gastro-esophageal reflux disease without esophagitis
CPT/HCPCS: 36415; 80053; 83690; 85025; 99283